=== PATIENT | female | born 1945 | race Caucasian/White ===

== ENCOUNTER 2016-06-21 09:15 | Emergency (ER) | payer MEDICARE, MEDICAID ==
--- NOTE | 2016-06-21 10:05 | ER Document Report ---
ED Extremity Problem, Lower - General Chief Complaint: Leg Swelling Stated Complaint: BILATERAL LEG PAIN Notes: The patient is a 71-year-old female, past medical history dementia, OA, HTN, presents with 2 weeks of increasing left leg swelling and mild redness. Her son noticed a small blister on the left lower leg a few days ago, which has not increased in size. She is also having a dry cough. Denies fevers, nausea, vomiting, back pain, numbness, tingling or leg pain. TRAVEL OUTSIDE OF THE [place] IN LAST 30 DAYS: No - Related Data Allergies/Adverse Reactions: aspirin [Aspirin] Allergy (Verified 06/21/16 09:33) codeine [Codeine] Allergy (Verified 06/21/16 09:33) naproxen [From Naprosyn] Allergy (Verified 06/21/16 09:33) Past Medical History - General Information source: Patient, Relative - Son - Social History Smoking Status: Never Smoker Chew tobacco use (# tins/day): No Frequency of alcohol use: None Drug Abuse: None Family History: Reviewed & Not Pertinent Patient has suicidal ideation: No Patient has homicidal ideation: No - Past Medical History Cardiac Medical History: Reports: Hx Hypertension Renal/ Medical History: Denies: Hx Peritoneal Dialysis Musculoskeltal Medical History: Reports Hx Arthritis Psychiatric Medical History: Reports: Hx Schizophrenia Past Surgical History: Reports: Hx Appendectomy, Hx Cholecystectomy, Hx Tonsillectomy - Immunizations Hx Diphtheria, Pertussis, Tetanus Vaccination: No Hx Pneumococcal Vaccination: 01/03/14 Review of Systems - Review of Systems Notes: REVIEW OF SYSTEMS: CONSTITUTIONAL: -fevers, -chills EENT: -eye pain, -difficulty swallowing, -nasal congestion CARDIOVASCULAR: -chest pain, -syncope. RESPIRATORY: +cough, -SOB GASTROINTESTINAL: -abdominal pain, - nausea, -vomiting, -diarrhea GENITOURINARY: -dysuria, -hematuria MUSCULOSKELETAL: +left leg swelling, -back pain, -neck pain SKIN: -rash or skin lesions. HEMATOLOGIC: -easy bruising or bleeding. LYMPHATIC: -swollen, enlarged glands. NEUROLOGICAL: -altered mental status or loss of consciousness, -headache, - neurologic symptoms PSYCHIATRIC: -anxiety, -depression. ALL OTHER SYSTEMS REVIEWED AND NEGATIVE. Physical Exam - Vital signs Vitals: Temp Pulse BP Pulse Ox 98.0 F 78 144/91 H 94 06/21/16 09:27 06/21/16 09:27 06/21/16 09:27 06/21/16 09:27 - Notes Notes: PHYSICAL EXAMINATION: GENERAL: Well-appearing, well-nourished and in no acute distress. HEAD: Atraumatic, normocephalic. EYES: Pupils equal round and reactive to light, extraocular movements intact, sclera anicteric, conjunctiva are normal. ENT: nares patent, oropharynx clear without exudates. Moist mucous membranes. NECK: Normal range of motion, supple without lymphadenopathy LUNGS: Breath sounds clear to auscultation bilaterally and equal. No wheezes rales or rhonchi. HEART: Regular rate and rhythm without murmurs ABDOMEN: Soft, nontender, normoactive bowel sounds. No guarding, no rebound. No masses appreciated. EXTREMITIES: 1+ pitting edema and mild erythema over left anterior arenas, no calf tenderness, no crepitus, Normal range of motion. No cyanosis. NEUROLOGICAL: Cranial nerves grossly intact. Normal speech, normal gait. Normal sensory, motor, and reflex exams. PSYCH: Normal mood, normal affect. SKIN: 0.5 cm blister over left medial arenas, non-tender Course - Re-evaluation Re-evalutation: Considered necrotizing fasciitis, but small blister has been present for several days without progression. Nontender area. Patient is nontoxic and afebrile. Will obtain an ultrasound of the left lower extremity to assess for DVT. Will also check CBC, BMP and BNP for causes of chronic leg swelling. Patient has very mild wheezing without respiratory distress and will treat with DuoNebs. 06/21/16 13:23 Wheezing resolved. Labs are unremarkable and ultrasound does not show DVT. No evidence of necrotizing fasciitis. Will discharge home after dose of Lasix and instructions to keep leg elevated with follow-up primary care physician. - Vital Signs Vital signs: Temp Pulse Resp BP Pulse Ox 98.0 F 78 144/91 H 94 06/21/16 09:27 06/21/16 09:27 06/21/16 09:27 06/21/16 09:27 - Laboratory Result Diagrams: 06/21/16 12:02 06/21/16 12:02 Laboratory results interpreted by me: 06/21/16 06/21/16 12:02 12:02 Hgb 11.8 L Hct 34.7 L BUN 30 H Est GFR (Non-Af Amer) 49 L Glucose 117 H - Diagnostic Test Radiology reviewed: Image reviewed, Reports reviewed Radiology results interpreted by me: DVT US: No DVT or SVT. Discharge - Discharge Clinical Impression: Swelling of left lower extremity Condition: Good Disposition: HOME, SELF-CARE Additional Instructions: Your ultrasound does not show any evidence of blood clots. Edema, Peripheral You have swelling in your legs. This is called peripheral edema. It can be caused by "leaky capillaries," inflammation, disease of the leg veins, or excess salt and water in your body. Edema may be a sign of heart, kidney, or liver disease. A medical evaluation can determine if there is a serious underlying cause for your edema. Avoid prolonged standing. If you must sit for a long time, occasionally get up and walk around or elevate your legs. Support stockings can be helpful in limiting swelling. Often diuretic or water pills are used to remove excess salt and water from your body. Call the doctor or return if you develop increased swelling, pain, or redness, shortness of breath, chest pain, or any other significant change.
[2016-06-21] MEDS ORDERED: IPRATROPIUM/ALBUTEROL 0.5-2.5 MG/3 ML AMPUL NEB ONE (10:39)
[2016-06-21 12:27] LABS: ABSOLUTE EOSINOPHILS # (AUTO) 0.3 10^3/uL (0.0-0.6); ABSOLUTE LYMPHOCYTES (AUTO) 1.3 10^3/uL (0.5-4.7); ABSOLUTE MONOCYTES (AUTO) 0.6 10^3/uL (0.1-1.4); BASOPHILS % (AUTO) 0.5 % (0-2); EOSINOPHILS % (AUTO) 5.2 % (0-6); HEMATOCRIT 34.7 % (36.0-47.0); HEMOGLOBIN 11.8 g/dL (12.0-15.5); HGB HCT DIFFERENCE 0.7; LYMPHOCYTES % (AUTO) 20.2 % (13-45); MEAN CORPUSCULAR HEMOGLOBIN 31.2 pg (27.0-33.4); MEAN CORPUSCULAR VOLUME 92 fl (80-97); MONOCYTES % (AUTO) 9.5 % (3-13); RED BLOOD COUNT 3.78 10^6/uL (3.72-5.28); RED CELL DISTRIBUTION WIDTH 12.7 % (11.5-14.0); SEGMENTED NEUTROPHILS % (AUTO) 64.6 % (42-78); WHITE BLOOD COUNT 6.3 10^3/uL (4.0-10.5)
[2016-06-21 12:51] LABS: ANION GAP 7 (5-19); BLOOD UREA NITROGEN 30 mg/dL (7-20); CALCIUM 9.3 mg/dL (8.4-10.2); CARBON DIOXIDE 28 mmol/L (22-30); CHLORIDE 106 mmol/L (98-107); CREATININE RESULT 1.09 mg/dL (0.52-1.25); GLUCOSE 117 mg/dL (75-110); POTASSIUM 3.7 mmol/L (3.6-5.0); SODIUM 141.3 mmol/L (137-145)
[2016-06-21] MEDS ORDERED: ACETAMINOPHEN 325 MG TABLET PO ONE (13:21)
[2016-06-21] MEDS ORDERED: FUROSEMIDE INJ/PF 40 MG/4 ML SDV IV ONE (13:28)
[2016-06-21 14:02] VITALS: BP 157/86
== END 2016-06-21 14:18 | disposition home or self-care (01) ==
LOC: ER 09:15
DX: S80.822A Blister (nonthermal), left lower leg, initial encounter (principal); X58.XXXA Exposure to other specified factors, initial encounter; M79.89 Other specified soft tissue disorders; R05 Cough; I10 Essential (primary) hypertension; Z88.6 Allergy status to analgesic agent; Z88.5 Allergy status to narcotic agent; Z88.8 Allergy status to other drugs, medicaments and biological substances
CPT/HCPCS: 94640; 99284; 96374; 36415; 85025; 80048; 83880; 93971; A9270 ×2; J1940; J7620

== ENCOUNTER 2016-10-11 11:36 | Inpatient (IN) | payer MEDICARE, MEDICAID ==
[2016-10-11] MEDS ORDERED: DILTIAZEM HCL/D5W 125 MG/125 ML RTUINJ IV ONE (12:10)
[2016-10-11] MEDS ORDERED: DILTIAZEM HCL INJ 25 MG/5 ML VIAL ONE (12:10)
[2016-10-11] MEDS ORDERED: DILTIAZEM HCL INJ 25 MG/5 ML VIAL IV ONE (12:25)
[2016-10-11] MEDS ORDERED: DILTIAZEM HCL/D5W 125 ML IV PRN (12:25)
[2016-10-11 12:47] LABS: ABSOLUTE EOSINOPHILS # (AUTO) 0.3 10^3/uL (0.0-0.6); ABSOLUTE LYMPHOCYTES (AUTO) 1.6 10^3/uL (0.5-4.7); ABSOLUTE MONOCYTES (AUTO) 0.7 10^3/uL (0.1-1.4); ABSOLUTE NEUT (AUTO) 4.9 10^3/uL (1.7-8.2); BASOPHILS % (AUTO) 0.5 % (0-2); HEMATOCRIT 35.4 % (36.0-47.0); HEMOGLOBIN 11.6 g/dL (12.0-15.5); HGB HCT DIFFERENCE -0.6; LYMPHOCYTES % (AUTO) 20.8 % (13-45); MEAN CORPUSCULAR HEMOGLOBIN 30.1 pg (27.0-33.4); MEAN CORPUSCULAR HGB CONC 32.9 g/dL (32.0-36.0); MEAN CORPUSCULAR VOLUME 92 fl (80-97); MONOCYTES % (AUTO) 9.1 % (3-13); RED BLOOD COUNT 3.86 10^6/uL (3.72-5.28); RED CELL DISTRIBUTION WIDTH 13.4 % (11.5-14.0); SEGMENTED NEUTROPHILS % (AUTO) 65.6 % (42-78); WHITE BLOOD COUNT 7.5 10^3/uL (4.0-10.5)
[2016-10-11 12:49] LABS: PARTIAL THROMBOPLASTIN TIME 33.3 SEC (23.5-35.8); PROTHROMBIN TIME 14.2 SEC (11.4-15.4)
[2016-10-11 12:55] LABS: BLOOD UREA NITROGEN 31 mg/dL (7-20); CALCIUM 9.4 mg/dL (8.4-10.2); CARBON DIOXIDE 23 mmol/L (22-30); CHLORIDE 110 mmol/L (98-107); CREATININE RESULT 1.16 mg/dL (0.52-1.25); GLUCOSE 98 mg/dL (75-110); POTASSIUM 4.4 mmol/L (3.6-5.0)
[2016-10-11 12:56] LABS: ALANINE AMINOTRANSFERASE 22 U/L (9-52); ALBUMIN 4.2 g/dL (3.5-5.0); ALKALINE PHOSPHATASE 80 U/L (38-126); ANION GAP 13 (5-19); ASPARTATE AMINO TRANSFERASE 16 U/L (14-36); BILIRUBIN,DIRECT 0.3 mg/dL (0.0-0.4); BILIRUBIN,TOTAL 0.8 mg/dL (0.2-1.3); CREATINE KINASE 58 U/L (30-135); MAGNESIUM 2.1 mg/dL (1.6-2.3); SODIUM 145.7 mmol/L (137-145); TOTAL PROTEIN 7.3 g/dL (6.3-8.2)
--- NOTE | 2016-10-11 13:00 | RADIOLOGY REPORT (SQ) ---
EXAM DESCRIPTION: CHEST SINGLE VIEW COMPLETED DATE/TIME: 10/11/2016 12:42 pm REASON FOR STUDY: cp COMPARISON: January 2015 EXAM PARAMETERS: NUMBER OF VIEWS: One view. TECHNIQUE: Single frontal radiographic view of the chest acquired. RADIATION DOSE: NA LIMITATIONS: None. FINDINGS: LUNGS AND PLEURA: No opacities, masses or pneumothorax. No pleural effusion. MEDIASTINUM AND HILAR STRUCTURES: No masses. Contour normal. HEART AND VASCULAR STRUCTURES: The configuration of the heart and mediastinal structures is unchanged . Cardiac silhouette is at the upper limits of normal in size. BONES: No acute findings. HARDWARE: None in the chest. OTHER: No other significant finding. IMPRESSION: NO ACUTE RADIOGRAPHIC FINDING IN THE CHEST. TECHNICAL DOCUMENTATION: JOB ID: [id number]
[2016-10-11 13:19] LABS: CREATINE KINASE MB 1.05 ng/mL (<4.55)
[2016-10-11 13:24] LABS: TROPONIN I < 0.012 ng/mL
[2016-10-11 13:26] LABS: APPEARANCE,URINE CLEAR; BILIRUBIN,URINE NEGATIVE (NEGATIVE); GLUCOSE, URINE NEGATIVE (NEGATIVE); KETONES,URINE NEGATIVE (NEGATIVE); LEUKOCYTE ESTERASE,URINE NEGATIVE (NEGATIVE); NITRITE,URINE NEGATIVE (NEGATIVE); PROTEIN,URINE NEGATIVE (NEGATIVE); URINE SPECIFIC GRAVITY 1.023; UROBILINOGEN,URINE NEGATIVE mg/dL (<2.0)
[2016-10-11 13:33] LABS: THYROID STIMULATING HORMONE 3.26 uIU/mL (0.47-4.68)
--- NOTE | 2016-10-11 13:42 | ER Document Report ---
ED General - General Chief Complaint: Shortness Of Breath Stated Complaint: CHEST PAIN Time Seen by Provider: 10/11/16 12:25 TRAVEL OUTSIDE OF THE [place] IN LAST 30 DAYS: No - HPI Patient complains to provider of: Shortness of breath Notes: Patient was seen in triage found to have elevated heart rate. EKG showed A. fib with RVR. Patient states recent admission for psychiatric reason patient has a history of schizophrenia to [facility] at that time patient was found to be in A. fib started on metoprolol and Eliquis states the patient has been compliant states that she is to began to have shortness of breath just prior to arrival. Patient otherwise is able to have a normal conversation no signs of hypoxia. Patient denies any pain denies any abdominal pain denies chest pain. Denies fevers chills nausea vomiting - Related Data Allergies/Adverse Reactions: aspirin [Aspirin] Allergy (Verified 10/11/16 11:51) codeine [Codeine] Allergy (Verified 10/11/16 11:51) naproxen [From Naprosyn] Allergy (Verified 10/11/16 11:51) Home Medications: Current Home Medications Apixaban [Eliquis 5 mg Tablet] 5 mg PO Q12 10/11/16 [History] Cholecalciferol (Vitamin D3) [Vitamin D3 1000 Unit Tablet] 1,000 unit PO DAILY 10/11/16 [History] Dexlansoprazole [Dexilant 30 mg Capsule] 30 mg PO QHS 10/11/16 [History] Levothyroxine Sodium [Synthroid 50 Mcg Tablet] 50 mcg PO DAILY@0630 10/11/16 [ History] Losartan/Hydrochlorothiazide [Hyzaar 100-25 Tablet] 1 tab PO DAILY 10/11/16 [ History] Metoprolol Tartrate [Lopressor 50 mg Tablet] 50 mg PO Q12 10/11/16 [History] Mirabegron [Myrbetriq] 25 mg PO DAILY 10/11/16 [History] Potassium Chloride [Klor-Con 8] 16 meq PO DAILY 10/11/16 [History] Quetiapine Fumarate [Seroquel] 50 mg PO BIDP PRN 10/11/16 [History] Quetiapine Fumarate [Seroquel] 50 mg PO QHS 10/11/16 [History] Rivastigmine Tartrate [Rivastigmine] 6 mg PO Q12 10/11/16 [History] Past Medical History - Social History Smoking Status: Never Smoker Frequency of alcohol use: None Drug Abuse: None Family History: Reviewed & Not Pertinent Patient has suicidal ideation: No Patient has homicidal ideation: No - Past Medical History Cardiac Medical History: Reports: Hx Hypertension Renal/ Medical History: Denies: Hx Peritoneal Dialysis Musculoskeltal Medical History: Reports Hx Arthritis Psychiatric Medical History: Reports: Hx Schizophrenia Past Surgical History: Reports: Hx Appendectomy, Hx Cholecystectomy, Hx Tonsillectomy - Immunizations Hx Diphtheria, Pertussis, Tetanus Vaccination: No Hx Pneumococcal Vaccination: 01/03/14 Review of Systems - Review of Systems Constitutional: No symptoms reported EENT: No symptoms reported Cardiovascular: No symptoms reported Respiratory: Short of breath Gastrointestinal: No symptoms reported Genitourinary: No symptoms reported Female Genitourinary: No symptoms reported Musculoskeletal: No symptoms reported Skin: No symptoms reported Hematologic/Lymphatic: No symptoms reported Neurological/Psychological: No symptoms reported -: Yes All other systems reviewed and negative Physical Exam - Vital signs Vitals: Temp Pulse Resp BP Pulse Ox 97.9 F 67 20 141/104 H 95 10/11/16 11:51 10/11/16 11:51 10/11/16 11:51 10/11/16 11:51 10/11/16 11:51 Interpretation: Normal - General General appearance: Appears well, Alert - HEENT Head: Normocephalic, Atraumatic Eyes: Normal Pupils: PERRL - Respiratory Respiratory status: No respiratory distress Chest status: Nontender Breath sounds: Normal Chest palpation: Normal - Cardiovascular Rhythm: Irregularly irregular Heart sounds: Normal auscultation Murmur: No - Abdominal Inspection: Normal Distension: No distension Bowel sounds: Normal Tenderness: Nontender Organomegaly: No organomegaly - Back Back: Normal, Nontender - Extremities General upper extremity: Normal inspection, Nontender, Normal color, Normal ROM , Normal temperature General lower extremity: Normal inspection, Nontender, Normal color, Normal ROM , Normal temperature, Normal weight bearing. No: Bang's sign - Neurological Neuro grossly intact: Yes Cognition: Normal Orientation: AAOx4 [place] Coma Scale Eye Opening: Spontaneous [place] Coma Scale Verbal: Oriented [place] Coma Scale Motor: Obeys Commands Lola Coma Scale Total: 15 Speech: Normal Motor strength normal: LUE, RUE, LLE, RLE Sensory: Normal - Psychological Associated symptoms: Normal affect, Normal mood - Skin Skin Temperature: Warm Skin Moisture: Dry Skin Color: Normal Course - Re-evaluation Re-evalutation: 10/11/16 15:38 EKG shows tachycardia with A. fib RVR. Patient was given a bolus of Cardizem followed by drip. Discussed with PCP will admit patient for further evaluation of A. fib with RVR - Vital Signs Vital signs: Temp Pulse Resp BP Pulse Ox 98.0 F 67 20 128/95 H 99 10/11/16 15:01 10/11/16 11:51 10/11/16 15:11 10/11/16 15:11 10/11/16 15:10 - Laboratory Result Diagrams: 10/11/16 12:05 10/11/16 12:05 Laboratory results interpreted by me: 10/11/16 10/11/16 10/11/16 12:05 12:05 12:05 Hgb 11.6 L Hct 35.4 L Sodium 145.7 H Chloride 110 H BUN 31 H Est GFR ( Amer) 56 L Est GFR (Non-Af Amer) 46 L NT-Pro-B Natriuret Pep 2580 H Discharge - Discharge Clinical Impression: Atrial fibrillation with RVR, Peripheral edema, History of schizophrenia, History of hypertension Condition: Good Disposition: ADMITTED INPATIENT Admitting Provider: Paul Unit Admitted: IMCU Referrals: GANGA SANTAMARIA MD [Primary Care Provider] - Follow up as needed
[2016-10-11 13:58] LABS: URINE BARBITURATES SCREEN NEGATIVE; URINE METHADONE SCREEN NEGATIVE; URINE OPIATES LOW NEGATIVE; URINE PHENCYCLIDINE SCREEN NEGATIVE
--- NOTE | 2016-10-11 17:29 | PDOC H&P ---
History of Present Illness Admission Date/PCP: 10/11/16 14:05 GANGA SANTAMARIA History of Present Illness: ARPIT NAYLOR is a 71 year old female known to my practice douglas presented to the ED with complain of shortness of brerath with irregular heart beats. She was recently discharged from [facility] following admission for acute psychosis with diagnosis of schizophrenia. During her hospital stay she had episode of atrial fibrillation and after cardiology consultation started on Metoprolol and Eliquis for rate control and anticoagulation management. Patient reported associated chest pain, shortness of breath and wheezing with her irregular freire beat. She was diagnosed woith hypothyroidism and started on low dose Levothyroxine during same admission to [facility]. She denied any chest pain, nausea , vomiting or abdominal pain. No headache or dizziness. Her initial assessment in the ED was remarkable for Atrial Fibrillation with RVR patten. Her medical morbidities include Hypertension,newly diagnosed a5tial fibrillation, hypothyroidism, schizophrenia and Osteoarthritis. Past Medical History Cardiac Medical History: Reports: Atrial Fibrillation, Hypertension Endocrine Medical History: Reports: Hypothyroidism, Obesity GI Medical History: Reports: Gastroesophageal Reflux Disease Musculoskeltal Medical History: Reports: Arthritis Psychiatric Medical History: Reports: Schizoaffective Disorder Past Surgical History Past Surgical History: Reports: Appendectomy, Cholecystectomy, Tonsillectomy Social History Smoking Status: Never Smoker Frequency of Alcohol Use: None Hx Recreational Drug Use: No Hx Prescription Drug Abuse: No Family History Family History: Reviewed & Not Pertinent Parental Family History Reviewed: Yes Children Family History Reviewed: Yes Sibling(s) Family History Reviewed.: Yes Medication/Allergy Home Medications: Apixaban [Eliquis 5 mg Tablet] 5 mg PO Q12 10/11/16 Cholecalciferol (Vitamin D3) [Vitamin D3 1000 Unit Tablet] 1,000 unit PO DAILY 10/11/16 Dexlansoprazole [Dexilant 30 mg Capsule] 30 mg PO QHS 10/11/16 Levothyroxine Sodium [Synthroid 50 Mcg Tablet] 50 mcg PO DAILY@0630 10/11/16 Losartan/Hydrochlorothiazide [Hyzaar 100-25 Tablet] 1 tab PO DAILY 10/11/16 Metoprolol Tartrate [Lopressor 50 mg Tablet] 50 mg PO Q12 10/11/16 Mirabegron [Myrbetriq] 25 mg PO DAILY 10/11/16 Potassium Chloride [Klor-Con 8] 16 meq PO DAILY 10/11/16 Quetiapine Fumarate [Seroquel] 50 mg PO BIDP PRN 10/11/16 Quetiapine Fumarate [Seroquel] 50 mg PO QHS 10/11/16 Rivastigmine Tartrate [Rivastigmine] 6 mg PO Q12 10/11/16 Allergies/Adverse Reactions: aspirin [Aspirin] Allergy (Verified 10/11/16 11:51) codeine [Codeine] Allergy (Verified 10/11/16 11:51) naproxen [From Naprosyn] Allergy (Verified 10/11/16 11:51) Review of Systems Constitutional: ABSENT: chills, fever(s), headache(s), weight gain, weight loss Eyes: PRESENT: visual disturbances Ears: PRESENT: hearing changes. ABSENT: as per HPI, other Nose, Mouth, and Throat: ABSENT: as per HPI, headache(s), mouth pain, sore throat, vertigo, other Cardiovascular: PRESENT: chest pain, dyspnea on exertion, edema, palpitations. ABSENT: as per HPI, orthropnea, other Respiratory: PRESENT: dyspnea. ABSENT: as per HPI, cough, hemoptysis, sputum, other Gastrointestinal: ABSENT: abdominal pain, constipation, diarrhea, hematemesis, hematochezia, nausea, vomiting Genitourinary: ABSENT: dysuria, hematuria Musculoskeletal: ABSENT: joint swelling Integumentary: ABSENT: rash, wounds Neurological: ABSENT: abnormal gait, abnormal speech, confusion, dizziness, focal weakness, syncope Endocrine: ABSENT: cold intolerance, heat intolerance, polydipsia, polyuria Hematologic/Lymphatic: ABSENT: easy bleeding, easy bruising, lymphadenopathy Allergic/Immunologic: ABSENT: as per HPI, seasonal rhinorrhea, other Physical Exam Vital Signs: Temp Pulse Resp BP Pulse Ox 98.0 F 111 H 20 128/97 H 97 10/11/16 15:01 10/11/16 15:42 10/11/16 15:16 10/11/16 15:37 10/11/16 15:16 Intake & Output 10/10/16 10/11/16 10/12/16 06:59 06:59 06:59 Intake Total 50 Balance 50 General appearance: PRESENT: no acute distress, morbidly obese Head exam: PRESENT: atraumatic, normocephalic Eye exam: PRESENT: conjunctiva pink, EOMI, PERRLA. ABSENT: scleral icterus Ear exam: PRESENT: normal external ear exam Mouth exam: PRESENT: moist Teeth exam: PRESENT: poor dentation. ABSENT: dental caries, dental tenderness, edentulous, other Neck exam: PRESENT: full ROM. ABSENT: carotid bruit, JVD, lymphadenopathy, thyromegaly Respiratory exam: PRESENT: clear to auscultation milana Cardiovascular exam: PRESENT: irregular rhythm. ABSENT: bradycardia, clicks, diastolic murmur, gallop, RRR, rubs, +S1, +S2, systolic murmur, tachycardia, other Pulses: PRESENT: normal dorsalis pedis pul, +2 pedal pulses bilateral Vascular exam: PRESENT: normal capillary refill GI/Abdominal exam: PRESENT: normal bowel sounds, soft. ABSENT: distended, guarding, mass, organolmegaly, rebound, tenderness Rectal exam: PRESENT: deferred Gentrourinary exam: PRESENT: indwelling catheter Extremities exam: PRESENT: pedal edema Musculoskeletal exam: PRESENT: deformity - related to her arthritis, full ROM Neurological exam: PRESENT: alert, awake, oriented to person, oriented to place , oriented to time, oriented to situation, CN II-XII grossly intact. ABSENT: motor sensory deficit Psychiatric exam: PRESENT: appropriate affect Skin exam: PRESENT: dry, intact, warm. ABSENT: cyanosis, rash Results Laboratory Results: I reviewed her laboratory results on [facility]ely[facility] They form significant part of my medical decision making. Impressions: Chest X-Ray 10/11/16 12:25 IMPRESSION: NO ACUTE RADIOGRAPHIC FINDING IN THE CHEST. Assessment & Plan - Diagnosis (1) Atrial fibrillation with RVR Is this a current diagnosis for this admission?: YesPlan: See admitting physician orders. (2) HTN (hypertension) Qualifiers: Hypertension type: essential hypertension Qualified Code(s): I10 - Essential (primary) hypertension Is this a current diagnosis for this admission?: YesPlan: See admitting physician orders. (3) Hypothyroidism Qualifiers: Hypothyroidism type: unspecified Qualified Code(s): E03.9 - Hypothyroidism, unspecified Is this a current diagnosis for this admission?: YesPlan: See admitting physician orders. (4) GERD (gastroesophageal reflux disease) Qualifiers: Esophagitis presence: without esophagitis Qualified Code(s): K21.9 - Gastro-esophageal reflux disease without esophagitis Is this a current diagnosis for this admission?: YesPlan: See admitting physician orders. (5) History of stroke Is this a current diagnosis for this admission?: YesPlan: See admitting physician orders. (6) Depression Qualifiers: Depression Type: unspecified Qualified Code(s): F32.9 - Major depressive disorder, single episode, unspecified Is this a current diagnosis for this admission?: YesPlan: See admitting physician orders. (7) H/O retinal vein occlusion Is this a current diagnosis for this admission?: YesPlan: See admitting physician orders. (8) Schizophrenia, paranoid type Is this a current diagnosis for this admission?: YesPlan: See admitting physician orders. - Time Time Spent: 50 to 70 Minutes Medications reviewed and adjusted accordingly: Yes Anticipated discharge: Home Within: Other - Inpatient Certification Based on my medical assessment, after consideration of the patient's comorbidities, presenting symptoms, or acuity I expect that the services needed warrant INPATIENT care.: Yes I certify that my determination is in accordance with my understanding of Medicare's requirements for reasonable and necessary INPATIENT services [42 CFR 412.3e].: Yes Medical Necessity: Need Close Monitoring Due to Risk of Patient Decompensation, Need For IV Fluids, Need For Continuous Telemetry Monitoring, Risk of Complication if Not Cared For in Hospital Post Hospital Care: D/C Pantograph Watcher Documentation - Plan Summary Plan Summary: See admitting physician orders.
[2016-10-11] MEDS ORDERED: (PENDING PHARMACY ID) (Quetiapine Fumarate [Seroquel] 50 MG) PO PRN (17:33)
[2016-10-11] MEDS ORDERED: QUETIAPINE FUMARATE 25 MG TABLET PO PRN (17:46)
[2016-10-11 18:09] LABS: HEMATOCRIT 33.3 % (36.0-47.0); HEMOGLOBIN 10.9 g/dL (12.0-15.5); HGB HCT DIFFERENCE -0.6; MEAN CORPUSCULAR HGB CONC 32.6 g/dL (32.0-36.0); MEAN CORPUSCULAR VOLUME 92 fl (80-97); RED BLOOD COUNT 3.61 10^6/uL (3.72-5.28); RED CELL DISTRIBUTION WIDTH 13.1 % (11.5-14.0); WHITE BLOOD COUNT 5.9 10^3/uL (4.0-10.5)
[2016-10-11 18:15] LABS: PROTHROMBIN TIME 14.4 SEC (11.4-15.4)
[2016-10-11 18:16] LABS: PARTIAL THROMBOPLASTIN TIME 32.7 SEC (23.5-35.8)
[2016-10-11 18:25] LABS: CREATININE RESULT 1.03 mg/dL (0.52-1.25)
[2016-10-11] MEDS ORDERED: POTASSIUM CHLORIDE 20 MEQ/15 ML UDCUP PO ONE (19:00)
[2016-10-11] MEDS: RIVASTIGMINE TARTRATE 1.5 MG CAPSULE PO SCH (22:00)
[2016-10-11] MEDS ORDERED: (PENDING PHARMACY ID) (Quetiapine Fumarate [Seroquel] 50 MG) PO SCH (22:00)
[2016-10-11] MEDS ORDERED: (PENDING PHARMACY ID) (Rivastigmine Tartrate [Rivastigmine] 6 MG) PO SCH (22:00)
[2016-10-11] MEDS: QUETIAPINE FUMARATE 25 MG TABLET PO SCH (22:00)
[2016-10-11] MEDS: METOPROLOL TARTRATE 50 MG TABLET PO SCH (22:01)
[2016-10-11] MEDS: APIXABAN 5 MG TABLET PO SCH (22:05)
[2016-10-12] MEDS: LANSOPRAZOLE 30 MG TAB.RAP.DR PO SCH (05:35)
[2016-10-12] MEDS: LEVOTHYROXINE SODIUM 0.05 MG TABLET PO SCH (05:35)
[2016-10-12 05:48] LABS: ABSOLUTE EOSINOPHILS # (AUTO) 0.3 10^3/uL (0.0-0.6); ABSOLUTE LYMPHOCYTES (AUTO) 1.7 10^3/uL (0.5-4.7); ABSOLUTE MONOCYTES (AUTO) 0.6 10^3/uL (0.1-1.4); ABSOLUTE NEUT (AUTO) 4.1 10^3/uL (1.7-8.2); BASOPHILS % (AUTO) 0.3 % (0-2); EOSINOPHILS % (AUTO) 4.5 % (0-6); HEMATOCRIT 31.6 % (36.0-47.0); HEMOGLOBIN 10.3 g/dL (12.0-15.5); HGB HCT DIFFERENCE -0.7; LYMPHOCYTES % (AUTO) 25.9 % (13-45); MEAN CORPUSCULAR HGB CONC 32.8 g/dL (32.0-36.0); MEAN CORPUSCULAR VOLUME 92 fl (80-97); MONOCYTES % (AUTO) 8.6 % (3-13); RED BLOOD COUNT 3.45 10^6/uL (3.72-5.28); RED CELL DISTRIBUTION WIDTH 13.3 % (11.5-14.0); SEGMENTED NEUTROPHILS % (AUTO) 60.7 % (42-78); WHITE BLOOD COUNT 6.7 10^3/uL (4.0-10.5)
[2016-10-12 06:03] LABS: ALANINE AMINOTRANSFERASE 21 U/L (9-52); ALBUMIN 3.4 g/dL (3.5-5.0); ALKALINE PHOSPHATASE 69 U/L (38-126); ANION GAP 11 (5-19); ASPARTATE AMINO TRANSFERASE 12 U/L (14-36); BILIRUBIN,DIRECT 0.3 mg/dL (0.0-0.4); BLOOD UREA NITROGEN 28 mg/dL (7-20); CARBON DIOXIDE 21 mmol/L (22-30); CHLORIDE 109 mmol/L (98-107); CREATINE KINASE 47 U/L (30-135); CREATININE RESULT 1.05 mg/dL (0.52-1.25); GLUCOSE 104 mg/dL (75-110); POTASSIUM 4.4 mmol/L (3.6-5.0); SODIUM 140.7 mmol/L (137-145)
[2016-10-12 06:37] LABS: TROPONIN I < 0.012 ng/mL
[2016-10-12] MEDS: METOPROLOL TARTRATE 50 MG TABLET PO SCH ×2 (09:07→21:33)
[2016-10-12] MEDS: CHOLECALCIFEROL (D3) 1,000 UNIT TABLET PO SCH (09:08)
[2016-10-12] MEDS: POTASSIUM CHLORIDE 20 MEQ/15 ML UDCUP PO SCH (09:10)
[2016-10-12] MEDS: RIVASTIGMINE TARTRATE 1.5 MG CAPSULE PO SCH ×2 (09:10→21:32)
[2016-10-12] MEDS: APIXABAN 5 MG TABLET PO SCH ×2 (09:10→21:34)
[2016-10-12] MEDS ORDERED: (PENDING PHARMACY ID) (Mirabegron [Myrbetriq] 25 MG) PO SCH (10:00)
[2016-10-12] MEDS ORDERED: POTASSIUM CHLORIDE 16 MEQ PO SCH (10:00)
--- NOTE | 2016-10-12 14:44 | PDOC PROGRESS REPORT ---
Subjective Progress Note for:: 10/12/16 Subjective:: Patient was admitted because of atria fibrillation with rapid ventricular response. She is presently on intravenous Cardizem infusion for rate control. He was seen by the bedside Physical Exam Vital Signs: Temp Pulse Resp BP Pulse Ox 98.3 F 74 20 115/71 96 10/12/16 11:33 10/12/16 11:33 10/12/16 11:33 10/12/16 11:33 10/12/16 11:33 Intake & Output 10/11/16 10/12/16 10/13/16 06:59 06:59 06:59 Intake Total 736 355 Output Total 800 200 Balance -64 155 Weight 123.1 kg 123.1 kg General appearance: PRESENT: no acute distress, well-developed, well-nourished Head exam: PRESENT: atraumatic, normocephalic Mouth exam: PRESENT: moist, tongue midline Neck exam: PRESENT: full ROM Respiratory exam: PRESENT: clear to auscultation milana Cardiovascular exam: PRESENT: RRR, +S1, +S2 Pulses: PRESENT: normal dorsalis pedis pul, +2 pedal pulses bilateral Vascular exam: PRESENT: normal capillary refill GI/Abdominal exam: PRESENT: normal bowel sounds, soft Rectal exam: PRESENT: deferred Neurological exam: PRESENT: alert, awake, oriented to person, oriented to place , oriented to time, oriented to situation, CN II-XII grossly intact Psychiatric exam: PRESENT: appropriate affect, normal mood Skin exam: PRESENT: dry, intact, warm. ABSENT: cyanosis, rash Results Laboratory Results: 10/12/16 04:46 10/12/16 04:46 10/11/16 10/11/16 10/12/16 17:45 17:45 04:46 WBC 5.9 6.7 RBC 3.61 L 3.45 L Hgb 10.9 L 10.3 L Hct 33.3 L 31.6 L MCV 92 92 MCH 30.0 30.0 MCHC 32.6 32.8 RDW 13.1 13.3 Plt Count 240 223 Seg Neutrophils % 60.7 Lymphocytes % 25.9 Monocytes % 8.6 Eosinophils % 4.5 Basophils % 0.3 Absolute Neutrophils 4.1 Absolute Lymphocytes 1.7 Absolute Monocytes 0.6 Absolute Eosinophils 0.3 Absolute Basophils 0.0 Sodium Potassium Chloride Carbon Dioxide Anion Gap BUN Creatinine 1.03 Est GFR ( Amer) > 60 Est GFR (Non-Af Amer) 53 L Glucose Calcium Total Bilirubin AST ALT Alkaline Phosphatase Total Protein Albumin 10/12/16 04:46 WBC RBC Hgb Hct MCV MCH MCHC RDW Plt Count Seg Neutrophils % Lymphocytes % Monocytes % Eosinophils % Basophils % Absolute Neutrophils Absolute Lymphocytes Absolute Monocytes Absolute Eosinophils Absolute Basophils Sodium 140.7 Potassium 4.4 Chloride 109 H Carbon Dioxide 21 L Anion Gap 11 BUN 28 H Creatinine 1.05 Est GFR ( Amer) > 60 Est GFR (Non-Af Amer) 52 L Glucose 104 Calcium 9.0 Total Bilirubin 1.0 AST 12 L ALT 21 Alkaline Phosphatase 69 Total Protein 6.0 L Albumin 3.4 L 10/11/16 10/12/16 10/12/16 16:30 04:46 04:46 Creatine Kinase 47 CK-MB (CK-2) 0.50 Troponin I < 0.012 < 0.012 Impressions: Chest X-Ray 10/11/16 12:25 IMPRESSION: NO ACUTE RADIOGRAPHIC FINDING IN THE CHEST. Assessment & Plan - Diagnosis (1) Atrial fibrillation with RVR Is this a current diagnosis for this admission?: YesPlan: Continue present treatment (2) History of hypertension Is this a current diagnosis for this admission?: Yes (3) History of stroke Is this a current diagnosis for this admission?: Yes (4) Hypothyroidism Qualifiers: Hypothyroidism type: unspecified Qualified Code(s): E03.9 - Hypothyroidism, unspecified Is this a current diagnosis for this admission?: Yes (5) Peripheral edema Is this a current diagnosis for this admission?: Yes (6) Schizophrenia, paranoid type Is this a current diagnosis for this admission?: Yes
[2016-10-12] MEDS ORDERED: HYDROCHLOROTHIAZIDE 25 MG TABLET PO ONE (17:00)
[2016-10-12 21:09] LABS: ARTERIAL BLOOD BASE EXCESS 0.5 mmol/L; ARTERIAL BLOOD O2 SATURATION 96.6 % (94-98)
[2016-10-12] MEDS ORDERED: ACETAMINOPHEN 325 MG TABLET ONE (21:32)
[2016-10-12] MEDS: QUETIAPINE FUMARATE 25 MG TABLET PO SCH (21:33)
--- NOTE | 2016-10-12 21:33 | RADIOLOGY REPORT (SQ) ---
EXAM DESCRIPTION: CHEST SINGLE VIEW COMPLETED DATE/TIME: 10/12/2016 8:54 pm REASON FOR STUDY: SOB COMPARISON: 10/11/2016 EXAM PARAMETERS: NUMBER OF VIEWS: One view. TECHNIQUE: Single frontal radiographic view of the chest acquired. RADIATION DOSE: NA LIMITATIONS: None. FINDINGS: LUNGS AND PLEURA: No opacities, masses or pneumothorax. No pleural effusion. MEDIASTINUM AND HILAR STRUCTURES: No masses. Contour normal. HEART AND VASCULAR STRUCTURES: The cardiomediastinal silhouette is stable. BONES: No acute findings. HARDWARE: None in the chest. OTHER: No other significant finding. IMPRESSION: NO ACUTE RADIOGRAPHIC FINDING IN THE CHEST. TECHNICAL DOCUMENTATION: JOB ID: [id number]
[2016-10-13 04:55] LABS: ABSOLUTE EOSINOPHILS # (AUTO) 0.3 10^3/uL (0.0-0.6); ABSOLUTE LYMPHOCYTES (AUTO) 1.8 10^3/uL (0.5-4.7); ABSOLUTE MONOCYTES (AUTO) 0.7 10^3/uL (0.1-1.4); ABSOLUTE NEUT (AUTO) 4.6 10^3/uL (1.7-8.2); BASOPHILS % (AUTO) 0.4 % (0-2); EOSINOPHILS % (AUTO) 3.6 % (0-6); HEMATOCRIT 34.1 % (36.0-47.0); HGB HCT DIFFERENCE -1.1; LYMPHOCYTES % (AUTO) 24.4 % (13-45); MEAN CORPUSCULAR HEMOGLOBIN 29.6 pg (27.0-33.4); MEAN CORPUSCULAR HGB CONC 32.3 g/dL (32.0-36.0); MEAN CORPUSCULAR VOLUME 91 fl (80-97); MONOCYTES % (AUTO) 9.9 % (3-13); RED BLOOD COUNT 3.74 10^6/uL (3.72-5.28); RED CELL DISTRIBUTION WIDTH 13.6 % (11.5-14.0); SEGMENTED NEUTROPHILS % (AUTO) 61.7 % (42-78); WHITE BLOOD COUNT 7.4 10^3/uL (4.0-10.5)
[2016-10-13 05:13] LABS: ANION GAP 11 (5-19); BLOOD UREA NITROGEN 27 mg/dL (7-20); CALCIUM 9.2 mg/dL (8.4-10.2); CARBON DIOXIDE 23 mmol/L (22-30); CHLORIDE 107 mmol/L (98-107); CREATININE RESULT 1.17 mg/dL (0.52-1.25); GLUCOSE 112 mg/dL (75-110); POTASSIUM 4.1 mmol/L (3.6-5.0); SODIUM 140.5 mmol/L (137-145)
[2016-10-13] MEDS: LANSOPRAZOLE 30 MG TAB.RAP.DR PO SCH (05:53)
[2016-10-13] MEDS: LEVOTHYROXINE SODIUM 0.05 MG TABLET PO SCH (05:53)
[2016-10-13] MEDS ORDERED: METRONIDAZOLE 500 MG/NS RTU 100 ML IV ONE (07:00)
[2016-10-13] MEDS: ACETAMINOPHEN 325 MG TABLET PO PRN (08:35)
[2016-10-13] MEDS: RIVASTIGMINE TARTRATE 1.5 MG CAPSULE PO SCH ×2 (08:35→21:49)
[2016-10-13] MEDS: METOPROLOL TARTRATE 50 MG TABLET PO SCH ×2 (08:36→21:50)
[2016-10-13] MEDS: HYDROCHLOROTHIAZIDE 25 MG TABLET PO SCH (08:36)
[2016-10-13] MEDS: APIXABAN 5 MG TABLET PO SCH ×2 (08:37→21:50)
[2016-10-13] MEDS: CHOLECALCIFEROL (D3) 1,000 UNIT TABLET PO SCH (08:37)
[2016-10-13] MEDS: POTASSIUM CHLORIDE 20 MEQ/15 ML UDCUP PO SCH (08:39)
--- NOTE | 2016-10-13 14:35 | PDOC PROGRESS REPORT ---
Subjective Progress Note for:: 10/13/16 Subjective:: She was seen by the bedside the stool study came back positive for C. difficile toxin Physical Exam Vital Signs: Temp Pulse Resp BP Pulse Ox 97.5 F 94 24 H 127/73 H 100 10/13/16 11:38 10/13/16 11:38 10/13/16 11:38 10/13/16 11:38 10/13/16 11:38 Intake & Output 10/12/16 10/13/16 10/14/16 06:59 06:59 06:59 Intake Total 736 1550 473 Output Total 800 1500 300 Balance -64 50 173 Weight 123.1 kg 123.1 kg General appearance: PRESENT: no acute distress, obese Eye exam: PRESENT: PERRLA Respiratory exam: PRESENT: clear to auscultation milana Cardiovascular exam: PRESENT: +S1, +S2 GI/Abdominal exam: PRESENT: soft Neurological exam: PRESENT: alert Results Laboratory Results: 10/13/16 04:11 10/13/16 04:11 10/12/16 10/13/16 10/13/16 19:55 04:11 04:11 WBC 7.4 RBC 3.74 Hgb 11.0 L Hct 34.1 L MCV 91 MCH 29.6 MCHC 32.3 RDW 13.6 Plt Count 237 Seg Neutrophils % 61.7 Lymphocytes % 24.4 Monocytes % 9.9 Eosinophils % 3.6 Basophils % 0.4 Absolute Neutrophils 4.6 Absolute Lymphocytes 1.8 Absolute Monocytes 0.7 Absolute Eosinophils 0.3 Absolute Basophils 0.0 Carbonic Acid 1.15 HCO3/H2CO3 Ratio 21:1 ABG pH 7.43 ABG pCO2 38.1 ABG pO2 84.3 ABG HCO3 24.7 ABG O2 Saturation 96.6 ABG Base Excess 0.5 FiO2 ROOM AIR Sodium 140.5 Potassium 4.1 Chloride 107 Carbon Dioxide 23 Anion Gap 11 BUN 27 H Creatinine 1.17 Est GFR ( Amer) 55 L Est GFR (Non-Af Amer) 46 L Glucose 112 H Calcium 9.2 10/11/16 10/12/16 10/12/16 16:30 04:46 04:46 Creatine Kinase 47 CK-MB (CK-2) 0.50 Troponin I < 0.012 < 0.012 Impressions: Chest X-Ray 10/12/16 00:00 IMPRESSION: NO ACUTE RADIOGRAPHIC FINDING IN THE CHEST. Assessment & Plan - Diagnosis (1) Atrial fibrillation with RVR Is this a current diagnosis for this admission?: Yes (2) History of hypertension Is this a current diagnosis for this admission?: Yes (3) History of stroke Is this a current diagnosis for this admission?: Yes (4) Hypothyroidism Qualifiers: Hypothyroidism type: unspecified Qualified Code(s): E03.9 - Hypothyroidism, unspecified Is this a current diagnosis for this admission?: Yes (5) Peripheral edema Is this a current diagnosis for this admission?: Yes (6) Schizophrenia, paranoid type Is this a current diagnosis for this admission?: Yes (7) Clostridium difficile diarrhea Is this a current diagnosis for this admission?: YesPlan: Start Flagyl 500 p.o. 3 times a day
[2016-10-13] MEDS: METRONIDAZOLE 500 MG/NS RTU 100 ML IV SCH ×2 (14:48→21:49)
[2016-10-13] MEDS ORDERED: DILTIAZEM HCL 240 MG CAPSULE.CR PO ONE (15:00)
[2016-10-13] MEDS: QUETIAPINE FUMARATE 25 MG TABLET PO SCH (21:50)
[2016-10-13] MEDS ORDERED: LACTOBACILLUS ACIDOPHILUS 250 MG TAB PO ONE (22:00)
[2016-10-14] MEDS: LANSOPRAZOLE 30 MG TAB.RAP.DR PO SCH (05:22)
[2016-10-14] MEDS: METRONIDAZOLE 500 MG/NS RTU 100 ML IV SCH ×3 (05:23→22:40)
[2016-10-14] MEDS: LEVOTHYROXINE SODIUM 0.05 MG TABLET PO SCH (05:24)
--- NOTE | 2016-10-14 09:54 | EKG REPORT ---
SEVERITY:- ABNORMAL ECG - ATRIAL FIBRILLATION, V-RATE 83-160 NONSPECIFIC T ABNORMALITIES, LATERAL LEADS : Confirmed by: Tod Arriola 14-Oct-2016 09:53:28
[2016-10-14] MEDS: DILTIAZEM HCL 240 MG CAPSULE.CR PO SCH (10:57)
[2016-10-14] MEDS: HYDROCHLOROTHIAZIDE 25 MG TABLET PO SCH (10:57)
[2016-10-14] MEDS: METOPROLOL TARTRATE 50 MG TABLET PO SCH ×2 (10:57→22:34)
[2016-10-14] MEDS: APIXABAN 5 MG TABLET PO SCH ×2 (10:57→22:35)
[2016-10-14] MEDS: RIVASTIGMINE TARTRATE 1.5 MG CAPSULE PO SCH ×2 (10:57→22:33)
[2016-10-14] MEDS: POTASSIUM CHLORIDE 20 MEQ/15 ML UDCUP PO SCH (10:57)
[2016-10-14] MEDS: CHOLECALCIFEROL (D3) 1,000 UNIT TABLET PO SCH (10:57)
[2016-10-14] MEDS: LACTOBACILLUS ACIDOPHILUS 250 MG TAB PO SCH ×2 (10:57→17:40)
--- NOTE | 2016-10-14 20:07 | PDOC PROGRESS REPORT ---
Subjective Progress Note for:: 10/14/16 Subjective:: Patient denied nay chest pain, SOB, or palpitation. She is off IV Cardizem drip. No nausea, vomiting, or abdominal pain. No diarrhea. Indwelling Calvo catheter in use. Physical Exam Vital Signs: Temp Pulse Resp BP Pulse Ox 98.1 F 80 19 104/60 97 10/14/16 15:18 10/14/16 15:18 10/14/16 15:18 10/14/16 15:18 10/14/16 15:18 Intake & Output 10/13/16 10/14/16 10/15/16 06:59 06:59 06:59 Intake Total 1550 2081 227 Output Total 1500 4480 200 Balance 50 -2399 27 Weight 123.1 kg 118.8 kg General appearance: PRESENT: no acute distress, morbidly obese Head exam: PRESENT: atraumatic, normocephalic Mouth exam: PRESENT: moist Respiratory exam: PRESENT: clear to auscultation milana Cardiovascular exam: PRESENT: irregular rhythm GI/Abdominal exam: PRESENT: normal bowel sounds, soft. ABSENT: distended, guarding, mass, organolmegaly, rebound, tenderness Extremities exam: PRESENT: pedal edema - comparatively better Musculoskeletal exam: PRESENT: deformity - related to joint involvement with arthritis Neurological exam: PRESENT: alert, awake, oriented to person, oriented to place , oriented to time, oriented to situation, CN II-XII grossly intact. ABSENT: motor sensory deficit Skin exam: PRESENT: dry, intact, warm. ABSENT: cyanosis, rash Results Laboratory Results: 10/13/16 04:11 10/13/16 04:11 10/11/16 10/12/16 10/12/16 16:30 04:46 04:46 Creatine Kinase 47 CK-MB (CK-2) 0.50 Troponin I < 0.012 < 0.012 Impressions: Chest X-Ray 10/12/16 00:00 IMPRESSION: NO ACUTE RADIOGRAPHIC FINDING IN THE CHEST. Assessment & Plan - Diagnosis (1) Atrial fibrillation with RVR Is this a current diagnosis for this admission?: YesPlan: See attending physician orders. maintain on Metoprolol for rate control and Eliquis for anticoagulation management (2) HTN (hypertension) Qualifiers: Hypertension type: essential hypertension Qualified Code(s): I10 - Essential (primary) hypertension Is this a current diagnosis for this admission?: YesPlan: See attending physician orders. (3) Hypothyroidism Qualifiers: Hypothyroidism type: unspecified Qualified Code(s): E03.9 - Hypothyroidism, unspecified Is this a current diagnosis for this admission?: YesPlan: See attending physician orders. (4) GERD (gastroesophageal reflux disease) Qualifiers: Esophagitis presence: without esophagitis Qualified Code(s): K21.9 - Gastro-esophageal reflux disease without esophagitis Is this a current diagnosis for this admission?: YesPlan: See attending physician orders. (5) History of stroke Is this a current diagnosis for this admission?: YesPlan: See attending physician orders. (6) Depression Qualifiers: Depression Type: unspecified Qualified Code(s): F32.9 - Major depressive disorder, single episode, unspecified Is this a current diagnosis for this admission?: YesPlan: See attending physician orders. (7) H/O retinal vein occlusion Is this a current diagnosis for this admission?: YesPlan: See attending physician orders. (8) Schizophrenia, paranoid type Is this a current diagnosis for this admission?: YesPlan: See attending physician orders. - Time Time Spent with patient: 25-34 minutes Medications reviewed and adjusted accordingly: Yes Anticipated discharge: Home with Homehealth Within: Other - Inpatient Certification Medical Necessity: Need Close Monitoring Due to Risk of Patient Decompensation, Need For Continuous Telemetry Monitoring, Risk of Complication if Not Cared For in Hospital Post Hospital Care: D/C Chief Lifestyle Officer Documentation - Plan Summary Plan Summary: See attending physician orders.
[2016-10-14] MEDS: QUETIAPINE FUMARATE 25 MG TABLET PO SCH (22:34)
[2016-10-15] MEDS: LEVOTHYROXINE SODIUM 0.05 MG TABLET PO SCH (04:44)
[2016-10-15] MEDS: LANSOPRAZOLE 30 MG TAB.RAP.DR PO SCH (04:45)
[2016-10-15] MEDS: ACETAMINOPHEN 325 MG TABLET PO PRN ×2 (04:45→21:14)
[2016-10-15] MEDS: METRONIDAZOLE 500 MG/NS RTU 100 ML IV SCH ×2 (04:48→13:47)
--- NOTE | 2016-10-15 08:49 | PDOC PROGRESS REPORT ---
Subjective Progress Note for:: 10/15/16 Subjective:: Patient denied nay chest pain, SOB, or palpitation. She reported episode of diarrhea this morning. No nausea, vomiting, or abdominal pain. Indwelling Calvo catheter in use. Physical Exam Vital Signs: Temp Pulse Resp BP Pulse Ox 98.1 F 114 H 13 130/77 H 97 10/15/16 08:00 10/15/16 08:00 10/15/16 08:00 10/15/16 08:00 10/15/16 08:00 Intake & Output 10/14/16 10/15/16 10/16/16 06:59 06:59 06:59 Intake Total 2081 827 Output Total 4480 700 Balance -2399 127 Weight 118.8 kg Physical Exam: General appearance: PRESENT: no acute distress, morbidly obese Head exam: PRESENT: atraumatic, normocephalic Mouth exam: PRESENT: moist Respiratory exam: PRESENT: clear to auscultation milana Cardiovascular exam: PRESENT: irregular rhythm GI/Abdominal exam: PRESENT: normal bowel sounds, soft. ABSENT: distended, guarding, mass, organomegaly, rebound, tenderness Extremities exam: PRESENT: pedal edema - comparatively better Musculoskeletal exam: PRESENT: deformity - related to joint involvement with arthritis Neurological exam: PRESENT: alert, awake, oriented to person, oriented to place , oriented to time, oriented to situation, CN II-XII grossly intact. ABSENT: motor sensory deficit Skin exam: PRESENT: dry, intact, warm. ABSENT: cyanosis, rash Results Laboratory Results: 10/13/16 04:11 10/13/16 04:11 10/11/16 10/12/16 10/12/16 16:30 04:46 04:46 Creatine Kinase 47 CK-MB (CK-2) 0.50 Troponin I < 0.012 < 0.012 Impressions: Chest X-Ray 10/12/16 00:00 IMPRESSION: NO ACUTE RADIOGRAPHIC FINDING IN THE CHEST. Assessment & Plan - Diagnosis (1) Atrial fibrillation with RVR Is this a current diagnosis for this admission?: YesPlan: See attending physician orders. Continue with Cardizem, Metoprolol and Eliquis. (2) Clostridium difficile colitis Is this a current diagnosis for this admission?: NoPlan: Patient will continue on oral Metronidazole 500mg p.o tid management for her newly diagnosed C. difficile colitis. I will maintainher on IV fluid support with N/S at 75 ml/hour. (3) HTN (hypertension) Qualifiers: Hypertension type: essential hypertension Qualified Code(s): I10 - Essential (primary) hypertension Is this a current diagnosis for this admission?: YesPlan: See attending physician orders. (4) Hypothyroidism Qualifiers: Hypothyroidism type: unspecified Qualified Code(s): E03.9 - Hypothyroidism, unspecified Is this a current diagnosis for this admission?: YesPlan: See attending physician orders. (5) GERD (gastroesophageal reflux disease) Qualifiers: Esophagitis presence: without esophagitis Qualified Code(s): K21.9 - Gastro-esophageal reflux disease without esophagitis Is this a current diagnosis for this admission?: YesPlan: See attending physician orders. (6) History of stroke Is this a current diagnosis for this admission?: YesPlan: See attending physician orders. (7) Depression Qualifiers: Depression Type: unspecified Qualified Code(s): F32.9 - Major depressive disorder, single episode, unspecified Is this a current diagnosis for this admission?: YesPlan: See attending physician orders. (8) H/O retinal vein occlusion Is this a current diagnosis for this admission?: YesPlan: See attending physician orders. (9) Schizophrenia, paranoid type Is this a current diagnosis for this admission?: YesPlan: See attending physician orders. - Time Time Spent with patient: 25-34 minutes Medications reviewed and adjusted accordingly: Yes Anticipated discharge: Home with Homehealth Within: Other - Inpatient Certification Medical Necessity: Need Close Monitoring Due to Risk of Patient Decompensation, Need For IV Fluids, Need For Continuous Telemetry Monitoring, Risk of Complication if Not Cared For in Hospital Post Hospital Care: D/C or Transfer Summary - Plan Summary Plan Summary: See attending physician orders.
[2016-10-15] MEDS: METOPROLOL TARTRATE 50 MG TABLET PO SCH ×2 (10:51→21:14)
[2016-10-15] MEDS: LACTOBACILLUS ACIDOPHILUS 250 MG TAB PO SCH ×2 (10:51→21:06)
[2016-10-15] MEDS: DILTIAZEM HCL 240 MG CAPSULE.CR PO SCH (10:51)
[2016-10-15] MEDS: HYDROCHLOROTHIAZIDE 25 MG TABLET PO SCH (10:51)
[2016-10-15] MEDS: RIVASTIGMINE TARTRATE 1.5 MG CAPSULE PO SCH ×2 (10:51→21:14)
[2016-10-15] MEDS: POTASSIUM CHLORIDE 20 MEQ/15 ML UDCUP PO SCH (10:51)
[2016-10-15] MEDS: CHOLECALCIFEROL (D3) 1,000 UNIT TABLET PO SCH (10:51)
[2016-10-15] MEDS: APIXABAN 5 MG TABLET PO SCH ×2 (11:03→21:14)
[2016-10-15] MEDS ORDERED: DIGOXIN INJ 0.5 MG/2 ML AMPULE IV ONE (14:00)
[2016-10-15] MEDS: METRONIDAZOLE 500 MG TABLET PO SCH (21:14)
[2016-10-15] MEDS: QUETIAPINE FUMARATE 25 MG TABLET PO SCH (21:14)
[2016-10-16] MEDS: METRONIDAZOLE 500 MG TABLET PO SCH ×3 (05:55→21:36)
[2016-10-16] MEDS: LEVOTHYROXINE SODIUM 0.05 MG TABLET PO SCH (05:55)
[2016-10-16] MEDS: LANSOPRAZOLE 30 MG TAB.RAP.DR PO SCH (05:55)
[2016-10-16] MEDS: ACETAMINOPHEN 325 MG TABLET PO PRN ×2 (05:57→22:26)
[2016-10-16] MEDS: RIVASTIGMINE TARTRATE 1.5 MG CAPSULE PO SCH ×2 (09:50→21:36)
[2016-10-16] MEDS: LACTOBACILLUS ACIDOPHILUS 250 MG TAB PO SCH ×2 (09:50→19:01)
[2016-10-16] MEDS: METOPROLOL TARTRATE 50 MG TABLET PO SCH ×2 (09:50→21:36)
[2016-10-16] MEDS: POTASSIUM CHLORIDE 20 MEQ/15 ML UDCUP PO SCH (09:50)
[2016-10-16] MEDS: APIXABAN 5 MG TABLET PO SCH ×2 (09:50→21:36)
[2016-10-16] MEDS: DILTIAZEM HCL 240 MG CAPSULE.CR PO SCH (09:50)
[2016-10-16] MEDS: HYDROCHLOROTHIAZIDE 25 MG TABLET PO SCH (09:50)
[2016-10-16] MEDS: CHOLECALCIFEROL (D3) 1,000 UNIT TABLET PO SCH (09:50)
--- NOTE | 2016-10-16 17:18 | PDOC PROGRESS REPORT ---
Subjective Progress Note for:: 10/16/16 Subjective:: Patient denied nay chest pain, SOB, or palpitation. She reported no episode of diarrhea so far today. No nausea, vomiting, or abdominal pain. Indwelling Calvo catheter in use. Physical Exam Vital Signs: Temp Pulse Resp BP Pulse Ox 98.2 F 75 20 122/76 99 10/16/16 16:00 10/16/16 16:00 10/16/16 16:00 10/16/16 16:00 10/16/16 16:00 Intake & Output 10/15/16 10/16/16 10/17/16 06:59 06:59 06:59 Intake Total 827 1537 Output Total 700 450 Balance 127 1087 Weight 120.3 kg Physical Exam: General appearance: PRESENT: no acute distress, morbidly obese Head exam: PRESENT: atraumatic, normocephalic Mouth exam: PRESENT: moist Respiratory exam: PRESENT: clear to auscultation milana Cardiovascular exam: PRESENT: irregular rhythm GI/Abdominal exam: PRESENT: normal bowel sounds, soft. ABSENT: distended, guarding, mass, organomegaly, rebound, tenderness Extremities exam: PRESENT: pedal edema - comparatively better Musculoskeletal exam: PRESENT: deformity - related to joint involvement with arthritis Neurological exam: PRESENT: alert, awake, oriented to person, oriented to place , oriented to time, oriented to situation, CN II-XII grossly intact. ABSENT: motor sensory deficit Skin exam: PRESENT: dry, intact, warm. ABSENT: cyanosis, rash Results Laboratory Results: 10/13/16 04:11 10/13/16 04:11 10/11/16 10/12/16 10/12/16 16:30 04:46 04:46 Creatine Kinase 47 CK-MB (CK-2) 0.50 Troponin I < 0.012 < 0.012 Impressions: Chest X-Ray 10/12/16 00:00 IMPRESSION: NO ACUTE RADIOGRAPHIC FINDING IN THE CHEST. Assessment & Plan - Diagnosis (1) Atrial fibrillation with RVR Is this a current diagnosis for this admission?: YesPlan: See attending physician orders. Continue on Cardizem and Metoprolol for rate control management and Eliquis for anticoagulation. (2) Clostridium difficile colitis Is this a current diagnosis for this admission?: NoPlan: Patient will continue on oral Metronidazole therapy for C. difficile colitis. Maintain on IV fluid support with N/S. (3) HTN (hypertension) Qualifiers: Hypertension type: essential hypertension Qualified Code(s): I10 - Essential (primary) hypertension Is this a current diagnosis for this admission?: YesPlan: See attending physician orders. (4) Hypothyroidism Qualifiers: Hypothyroidism type: unspecified Qualified Code(s): E03.9 - Hypothyroidism, unspecified Is this a current diagnosis for this admission?: YesPlan: See attending physician orders. (5) GERD (gastroesophageal reflux disease) Qualifiers: Esophagitis presence: without esophagitis Qualified Code(s): K21.9 - Gastro-esophageal reflux disease without esophagitis Is this a current diagnosis for this admission?: YesPlan: See attending physician orders. (6) History of stroke Is this a current diagnosis for this admission?: YesPlan: See attending physician orders. (7) Depression Qualifiers: Depression Type: unspecified Qualified Code(s): F32.9 - Major depressive disorder, single episode, unspecified Is this a current diagnosis for this admission?: YesPlan: See attending physician orders. (8) H/O retinal vein occlusion Is this a current diagnosis for this admission?: YesPlan: See attending physician orders. (9) Schizophrenia, paranoid type Is this a current diagnosis for this admission?: YesPlan: See attending physician orders. - Time Time Spent with patient: 25-34 minutes Medications reviewed and adjusted accordingly: Yes Anticipated discharge: Other - [facility] Within: Other - Inpatient Certification Based on my medical assessment, after consideration of the patient's comorbidities, presenting symptoms, or acuity I expect that the services needed warrant INPATIENT care.: Yes I certify that my determination is in accordance with my understanding of Medicare's requirements for reasonable and necessary INPATIENT services [42 CFR 412.3e].: Yes Medical Necessity: Need Close Monitoring Due to Risk of Patient Decompensation, Need For Continuous Telemetry Monitoring, Risk of Complication if Not Cared For in Hospital Post Hospital Care: D/C or Transfer Summary - Plan Summary Plan Summary: Continue current medication management. Follow up with logistics planner regarding [facility] placement. I will obtain physial therapy evaluation and improvement for mobilization.
[2016-10-16] MEDS: QUETIAPINE FUMARATE 25 MG TABLET PO SCH (21:36)
[2016-10-17] MEDS: LEVOTHYROXINE SODIUM 0.05 MG TABLET PO SCH (05:38)
[2016-10-17] MEDS: METRONIDAZOLE 500 MG TABLET PO SCH ×3 (05:38→22:24)
[2016-10-17] MEDS: LANSOPRAZOLE 30 MG TAB.RAP.DR PO SCH (05:38)
--- NOTE | 2016-10-17 07:55 | PDOC PROGRESS REPORT ---
Subjective Progress Note for:: 10/17/16 Subjective:: Patient denied nay chest pain, SOB, or palpitation. She reported no episode of diarrhea since last clinical evaluation. No nausea, vomiting, or abdominal pain. Physical Exam Vital Signs: Temp Pulse Resp BP Pulse Ox 98.0 F 63 16 123/69 97 10/17/16 03:23 10/17/16 03:23 10/17/16 03:23 10/17/16 03:23 10/17/16 03:23 Intake & Output 10/16/16 10/17/16 10/18/16 06:59 06:59 06:59 Intake Total 1537 1566 Output Total 450 Balance 1087 1566 Weight 120.3 kg 120 kg Physical Exam: General appearance: PRESENT: no acute distress, morbidly obese Head exam: PRESENT: atraumatic, normocephalic Mouth exam: PRESENT: moist Respiratory exam: PRESENT: clear to auscultation milana Cardiovascular exam: PRESENT: irregular rhythm GI/Abdominal exam: PRESENT: normal bowel sounds, soft. ABSENT: distended, guarding, mass, organomegaly, rebound, tenderness Extremities exam: PRESENT: pedal edema - comparatively better Musculoskeletal exam: PRESENT: deformity - related to joint involvement with arthritis Neurological exam: PRESENT: alert, awake, oriented to person, oriented to place , oriented to time, oriented to situation, CN II-XII grossly intact. ABSENT: motor sensory deficit Skin exam: PRESENT: dry, intact, warm. ABSENT: cyanosis, rash Results Laboratory Results: 10/13/16 04:11 10/13/16 04:11 10/11/16 10/12/16 10/12/16 16:30 04:46 04:46 Creatine Kinase 47 CK-MB (CK-2) 0.50 Troponin I < 0.012 < 0.012 Impressions: Chest X-Ray 10/12/16 00:00 IMPRESSION: NO ACUTE RADIOGRAPHIC FINDING IN THE CHEST. Assessment & Plan - Diagnosis (1) Atrial fibrillation with RVR Is this a current diagnosis for this admission?: YesPlan: See attending physician orders. Continue on Cardizem and Metoprolol for rate control management and Eliquis for anticoagulation. (2) Clostridium difficile colitis Is this a current diagnosis for this admission?: NoPlan: Patient will continue on oral Metronidazole therapy for C. difficile colitis. Maintain on IV fluid support with N/S. (3) HTN (hypertension) Qualifiers: Hypertension type: essential hypertension Qualified Code(s): I10 - Essential (primary) hypertension Is this a current diagnosis for this admission?: YesPlan: See attending physician orders. (4) Hypothyroidism Qualifiers: Hypothyroidism type: unspecified Qualified Code(s): E03.9 - Hypothyroidism, unspecified Is this a current diagnosis for this admission?: YesPlan: See attending physician orders. (5) GERD (gastroesophageal reflux disease) Qualifiers: Esophagitis presence: without esophagitis Qualified Code(s): K21.9 - Gastro-esophageal reflux disease without esophagitis Is this a current diagnosis for this admission?: YesPlan: See attending physician orders. (6) History of stroke Is this a current diagnosis for this admission?: YesPlan: See attending physician orders. (7) Depression Qualifiers: Depression Type: unspecified Qualified Code(s): F32.9 - Major depressive disorder, single episode, unspecified Is this a current diagnosis for this admission?: YesPlan: See attending physician orders. (8) H/O retinal vein occlusion Is this a current diagnosis for this admission?: YesPlan: See attending physician orders. (9) Schizophrenia, paranoid type Is this a current diagnosis for this admission?: YesPlan: See attending physician orders. - Time Time Spent with patient: 25-34 minutes Medications reviewed and adjusted accordingly: Yes Anticipated discharge: Other - [facility] placement, awaiting acceptance, Medicaid assistance and bed allocation - Inpatient Certification Medical Necessity: Need Close Monitoring Due to Risk of Patient Decompensation, Risk of Complication if Not Cared For in Hospital Post Hospital Care: D/C or Transfer Summary - Plan Summary Plan Summary: See attending physician orders.
[2016-10-17] MEDS: POTASSIUM CHLORIDE 20 MEQ/15 ML UDCUP PO SCH (09:44)
[2016-10-17] MEDS: LACTOBACILLUS ACIDOPHILUS 250 MG TAB PO SCH ×2 (09:52→18:53)
[2016-10-17] MEDS: CHOLECALCIFEROL (D3) 1,000 UNIT TABLET PO SCH (09:53)
[2016-10-17] MEDS: APIXABAN 5 MG TABLET PO SCH ×2 (09:53→22:24)
[2016-10-17] MEDS: RIVASTIGMINE TARTRATE 1.5 MG CAPSULE PO SCH ×2 (09:53→22:24)
[2016-10-17] MEDS: DILTIAZEM HCL 240 MG CAPSULE.CR PO SCH (09:54)
[2016-10-17] MEDS: HYDROCHLOROTHIAZIDE 25 MG TABLET PO SCH (09:55)
[2016-10-17] MEDS: METOPROLOL TARTRATE 50 MG TABLET PO SCH ×2 (09:55→22:24)
[2016-10-17] MEDS: QUETIAPINE FUMARATE 25 MG TABLET PO SCH (22:24)
[2016-10-17] MEDS: ACETAMINOPHEN 325 MG TABLET PO PRN (23:00)
[2016-10-18] MEDS: METRONIDAZOLE 500 MG TABLET PO SCH ×2 (06:01→14:12)
[2016-10-18] MEDS: LANSOPRAZOLE 30 MG TAB.RAP.DR PO SCH (06:01)
[2016-10-18] MEDS: LEVOTHYROXINE SODIUM 0.05 MG TABLET PO SCH (06:01)
[2016-10-18] MEDS: LACTOBACILLUS ACIDOPHILUS 250 MG TAB PO SCH (09:20)
[2016-10-18] MEDS: DILTIAZEM HCL 240 MG CAPSULE.CR PO SCH (09:21)
[2016-10-18] MEDS: HYDROCHLOROTHIAZIDE 25 MG TABLET PO SCH (09:21)
[2016-10-18] MEDS: METOPROLOL TARTRATE 50 MG TABLET PO SCH (09:21)
[2016-10-18] MEDS: CHOLECALCIFEROL (D3) 1,000 UNIT TABLET PO SCH (09:21)
[2016-10-18] MEDS: POTASSIUM CHLORIDE 20 MEQ/15 ML UDCUP PO SCH (09:22)
[2016-10-18] MEDS: APIXABAN 5 MG TABLET PO SCH (09:28)
[2016-10-18] MEDS: RIVASTIGMINE TARTRATE 1.5 MG CAPSULE PO SCH (09:29)
[2016-10-18 10:53] LABS: ABSOLUTE EOSINOPHILS # (AUTO) 0.3 10^3/uL (0.0-0.6); ABSOLUTE LYMPHOCYTES (AUTO) 1.4 10^3/uL (0.5-4.7); ABSOLUTE MONOCYTES (AUTO) 0.8 10^3/uL (0.1-1.4); ABSOLUTE NEUT (AUTO) 4.3 10^3/uL (1.7-8.2); BASOPHILS % (AUTO) 0.4 % (0-2); EOSINOPHILS % (AUTO) 4.9 % (0-6); HEMATOCRIT 35.7 % (36.0-47.0); HEMOGLOBIN 11.5 g/dL (12.0-15.5); HGB HCT DIFFERENCE -1.2; LYMPHOCYTES % (AUTO) 20.5 % (13-45); MEAN CORPUSCULAR HEMOGLOBIN 29.4 pg (27.0-33.4); MEAN CORPUSCULAR HGB CONC 32.3 g/dL (32.0-36.0); MEAN CORPUSCULAR VOLUME 91 fl (80-97); MONOCYTES % (AUTO) 11.5 % (3-13); RED BLOOD COUNT 3.92 10^6/uL (3.72-5.28); RED CELL DISTRIBUTION WIDTH 13.3 % (11.5-14.0); SEGMENTED NEUTROPHILS % (AUTO) 62.7 % (42-78); WHITE BLOOD COUNT 6.8 10^3/uL (4.0-10.5)
[2016-10-18 11:16] LABS: ANION GAP 13 (5-19); BLOOD UREA NITROGEN 43 mg/dL (7-20); CALCIUM 9.4 mg/dL (8.4-10.2); CARBON DIOXIDE 21 mmol/L (22-30); CHLORIDE 105 mmol/L (98-107); CREATININE RESULT 1.21 mg/dL (0.52-1.25); GLUCOSE 140 mg/dL (75-110)
[2016-10-18 12:39] VITALS: BP 116/71
--- NOTE | 2016-10-18 14:41 | PDOC DISCHARGE SUMMARY ---
General - Admit/Disc Date/PCP Admission Date/Primary Care Provider: 10/11/16 14:05 GANGA HINA Discharge Date: 10/18/16 - Discharge Diagnosis (1) Atrial fibrillation with RVR Is this a current diagnosis for this admission?: Yes (2) Clostridium difficile colitis Is this a current diagnosis for this admission?: No (3) HTN (hypertension) Is this a current diagnosis for this admission?: Yes (4) Hypothyroidism Is this a current diagnosis for this admission?: Yes (5) GERD (gastroesophageal reflux disease) Is this a current diagnosis for this admission?: Yes (6) History of stroke Is this a current diagnosis for this admission?: Yes (7) Depression Is this a current diagnosis for this admission?: Yes (8) H/O retinal vein occlusion Is this a current diagnosis for this admission?: Yes (9) Schizophrenia, paranoid type Is this a current diagnosis for this admission?: Yes - Additional Information Resuscitation Status: Full Code Discharge Diet: Cardiac Discharge Activity: Activity As Tolerated Home Medications: Apixaban [Eliquis 5 mg Tablet] 5 mg PO Q12 10/11/16 Cholecalciferol (Vitamin D3) [Vitamin D3 1000 Unit Tablet] 1,000 unit PO DAILY 10/11/16 Dexlansoprazole [Dexilant 30 mg Capsule] 30 mg PO QHS 10/11/16 Levothyroxine Sodium [Synthroid 0.05 mg Tablet] 50 mcg PO DAILY@0630 10/11/16 Losartan/Hydrochlorothiazide [Hyzaar 100-25 Tablet] 1 tab PO DAILY 10/11/16 Metoprolol Tartrate [Lopressor 50 mg Tablet] 50 mg PO Q12 10/11/16 Mirabegron [Myrbetriq] 25 mg PO DAILY 10/11/16 Potassium Chloride [Klor-Con 8] 16 meq PO DAILY 10/11/16 Quetiapine Fumarate [Seroquel] 50 mg PO BIDP PRN 10/11/16 Quetiapine Fumarate [Seroquel] 50 mg PO QHS 10/11/16 Rivastigmine Tartrate [Rivastigmine] 6 mg PO Q12 10/11/16 Diltiazem HCl [Cardizem Cd 240 mg Capsule.cr] 240 mg PO DAILY #30 capsule.cr Metronidazole [Flagyl 500 mg Tablet] 500 mg PO Q8 #21 tablet 10/18/16 History of Present Illness History of Present Illness: ARPIT NAYLOR is a 71 year old female known to my practice whyobani presented to the ED with complain of shortness of brerath with irregular heart beats. She was recently discharged from [facility] following admission for acute psychosis with diagnosis of schizophrenia. During her hospital stay she had episode of atrial fibrillation and after cardiology consultation started on Metoprolol and Eliquis for rate control and anticoagulation management. Patient reported associated chest pain, shortness of breath and wheezing with her irregular freire beat. She was diagnosed woith hypothyroidism and started on low dose Levothyroxine during same admission to [facility]. She denied any chest pain, nausea , vomiting or abdominal pain. No headache or dizziness. Her initial assessment in the ED was remarkable for Atrial Fibrillation with RVR patten. Her medical morbidities include Hypertension,newly diagnosed a5tial fibrillation, hypothyroidism, schizophrenia and Osteoarthritis. Hospital Course Hospital Course: Patient was admitted for Atrial fibrillation with RVR. She did respond to IV Cardizem infusion and eventually changed to oral route administration. She remain on beta troy Metoprolol therapy along with Eliquis for rate and anticoagulation management. He hospital stay was further prolonged due to development of C.difficile colitis associated diarrhea. She was managed with Oral Metronidazole and will be discharged home with same for 7 more days. Attempt at placement in Assisted Living Facility in progress and son will follow up on efforts upon discharge to his care.The son hold patient's POA status. She will follow up in office as instructed upon discharge. Physical Exam Vital Signs: Temp Pulse Resp BP Pulse Ox 97.7 F 67 20 116/71 96 10/18/16 12:00 10/18/16 12:00 10/18/16 12:00 10/18/16 12:00 10/18/16 12:00 Intake & Output 10/17/16 10/18/16 10/19/16 06:59 06:59 06:59 Intake Total 1566 150 Balance 1566 150 Weight 120 kg Physical Exam: General appearance: PRESENT: no acute distress, morbidly obese Head exam: PRESENT: atraumatic, normocephalic Mouth exam: PRESENT: moist Respiratory exam: PRESENT: clear to auscultation milana Cardiovascular exam: PRESENT: irregular rhythm GI/Abdominal exam: PRESENT: normal bowel sounds, soft. ABSENT: distended, guarding, mass, organomegaly, rebound, tenderness Extremities exam: PRESENT: pedal edema - comparatively better Musculoskeletal exam: PRESENT: deformity - related to joint involvement with arthritis Neurological exam: PRESENT: alert, awake, oriented to person, oriented to place , oriented to time, oriented to situation, CN II-XII grossly intact. ABSENT: motor sensory deficit Skin exam: PRESENT: dry, intact, warm. ABSENT: cyanosis, rash Results Laboratory Results: 10/18/16 10:32 10/18/16 10:32 10/18/16 10/18/16 10:32 10:32 WBC 6.8 RBC 3.92 Hgb 11.5 L Hct 35.7 L MCV 91 MCH 29.4 MCHC 32.3 RDW 13.3 Plt Count 248 Seg Neutrophils % 62.7 Lymphocytes % 20.5 Monocytes % 11.5 Eosinophils % 4.9 Basophils % 0.4 Absolute Neutrophils 4.3 Absolute Lymphocytes 1.4 Absolute Monocytes 0.8 Absolute Eosinophils 0.3 Absolute Basophils 0.0 Sodium 139.0 Potassium 4.0 Chloride 105 Carbon Dioxide 21 L Anion Gap 13 BUN 43 H Creatinine 1.21 Est GFR ( Amer) 53 L Est GFR (Non-Af Amer) 44 L Glucose 140 H Calcium 9.4 10/11/16 10/12/16 10/12/16 16:30 04:46 04:46 Creatine Kinase 47 CK-MB (CK-2) 0.50 Troponin I < 0.012 < 0.012 Impressions: Chest X-Ray 10/12/16 00:00 IMPRESSION: NO ACUTE RADIOGRAPHIC FINDING IN THE CHEST. Qualifiers PATEINT BEING DISCHARGED WITH ANY OF THE FOLLOWING DIAGNOSIS?: No Plan Discharge Plan: Discharge home today. Follow up in office as instructed upon discharge. Time Spent: Less than 30 Minutes
== END 2016-10-18 17:00 | disposition home or self-care (01) | DRG 309 ==
LOC: ER 11:36 → EH 14:05 → UNDOADMIN 14:05 → EH 15:38 → 3N 15:38 → 4S 10-15 04:05
PROVIDERS: ADMIT Internal Medicine Geriatric Medicine; ATTEND Internal Medicine Geriatric Medicine
DX: I48.91 Unspecified atrial fibrillation (principal); A04.7 Enterocolitis due to Clostridium difficile; F20.0 Paranoid schizophrenia; I10 Essential (primary) hypertension; E03.9 Hypothyroidism, unspecified; K21.9 Gastro-esophageal reflux disease without esophagitis; F32.9 Major depressive disorder, single episode, unspecified; Z79.899 Other long term (current) drug therapy; Z90.49 Acquired absence of other specified parts of digestive tract; Z88.6 Allergy status to analgesic agent; Z88.8 Allergy status to other drugs, medicaments and biological substances; Z86.73 Personal history of transient ischemic attack (TIA), and cerebral infarction without residual deficits
CPT/HCPCS: 36415; 51701; 51702; 71010; 80048; 80053; 80307; 81001; 82550; 82553; 82565; 82803; 83690; 83735; 83880; 84439; 84443; 84484; 85025; 85027; 85610; 85730; 87493; 93005; 93010; 96365; 96366; 99285; G8978-GP; G8979-GP; G8980-GP; J1160; J3490

== ENCOUNTER 2017-03-24 13:21 | Observation (INO) | payer MEDICARE, MEDICAID ==
[2017-03-24] MEDS ORDERED: PEG 3350/NA SULF,BICARB,CL/KCL 4000 ML PO ONE (14:31)
[2017-03-24] MEDS ORDERED: ACETAMINOPHEN 325 MG TABLET PO PRN (14:42)
[2017-03-24] MEDS ORDERED: PROMETHAZINE HCL INJ 25 MG/1 ML VIAL IV PRN (14:43)
[2017-03-24] MEDS ORDERED: MAG HYDROX/AL HYDROX/SIMETH SUSP 30 ML UDCUP PO PRN (14:44)
[2017-03-24] MEDS ORDERED: LANSOPRAZOLE 30 MG TAB.RAP.DR PO ONE (15:30)
[2017-03-24 16:45] LABS: PROTHROMBIN TIME 13.2 SEC (11.4-15.4)
[2017-03-24 16:46] LABS: PARTIAL THROMBOPLASTIN TIME 28.8 SEC (23.5-35.8)
[2017-03-24 16:52] LABS: ABSOLUTE EOSINOPHILS # (AUTO) 0.2 10^3/uL (0.0-0.6); ABSOLUTE LYMPHOCYTES (AUTO) 1.7 10^3/uL (0.5-4.7); ABSOLUTE MONOCYTES (AUTO) 0.6 10^3/uL (0.1-1.4); ABSOLUTE NEUT (AUTO) 4.1 10^3/uL (1.7-8.2); BASOPHILS % (AUTO) 0.4 % (0-2); EOSINOPHILS % (AUTO) 3.4 % (0-6); HEMATOCRIT 32.8 % (36.0-47.0); HEMOGLOBIN 11.1 g/dL (12.0-15.5); HGB HCT DIFFERENCE 0.5; LYMPHOCYTES % (AUTO) 25.4 % (13-45); MEAN CORPUSCULAR HEMOGLOBIN 30.2 pg (27.0-33.4); MEAN CORPUSCULAR VOLUME 89 fl (80-97); MONOCYTES % (AUTO) 9.4 % (3-13); RED BLOOD COUNT 3.69 10^6/uL (3.72-5.28); RED CELL DISTRIBUTION WIDTH 13.5 % (11.5-14.0); SEGMENTED NEUTROPHILS % (AUTO) 61.4 % (42-78); WHITE BLOOD COUNT 6.6 10^3/uL (4.0-10.5)
[2017-03-24 17:05] LABS: ALANINE AMINOTRANSFERASE 24 U/L (9-52); ALBUMIN 4.1 g/dL (3.5-5.0); ALKALINE PHOSPHATASE 73 U/L (38-126); ANION GAP 13 (5-19); ASPARTATE AMINO TRANSFERASE 14 U/L (14-36); BILIRUBIN,DIRECT 0.3 mg/dL (0.0-0.4); BILIRUBIN,TOTAL 0.7 mg/dL (0.2-1.3); BLOOD UREA NITROGEN 42 mg/dL (7-20); CALCIUM 9.6 mg/dL (8.4-10.2); CARBON DIOXIDE 27 mmol/L (22-30); CHLORIDE 105 mmol/L (98-107); CREATININE RESULT 1.47 mg/dL (0.52-1.25); GLUCOSE 135 mg/dL (75-110); POTASSIUM 3.4 mmol/L (3.6-5.0); SODIUM 144.8 mmol/L (137-145); TOTAL PROTEIN 6.6 g/dL (6.3-8.2)
[2017-03-24] MEDS ORDERED: MAGNESIUM CITRATE 296 ML BOTTLE PO ONE (19:30)
[2017-03-24] MEDS ORDERED: BISACODYL 5 MG TABEC PO ONE ×2 (19:30→21:00)
[2017-03-24] MEDS: SIMETHICONE 80 MG TAB.CHEW PO SCH (19:58)
[2017-03-24] MEDS ORDERED: ONDANSETRON HCL INJ/PF 4 MG/2 ML SDV IV ONE (20:00)
[2017-03-25] MEDS ORDERED: DEXTROSE 5%-NORMAL SALINE 1,000 ML IV PRN (05:00)
[2017-03-25] MEDS ORDERED: LANSOPRAZOLE 30 MG TAB.RAP.DR PO SCH (06:00)
[2017-03-25] MEDS: SIMETHICONE 80 MG TAB.CHEW PO SCH (08:47)
[2017-03-25] MEDS ORDERED: BISACODYL 5 MG TABEC PO ONE (09:00)
[2017-03-25] MEDS ORDERED: MAGNESIUM CITRATE 296 ML BOTTLE PO ONE (10:00)
[2017-03-25] MEDS: MIDAZOLAM 2 MG/2 ML INJ ONE ×2 (16:15→16:26)
[2017-03-25] MEDS ORDERED: MIDAZOLAM 2 MG/2 ML INJ ONE (16:36)
[2017-03-25] MEDS ORDERED: NALOXONE HCL INJ/PF 0.4 MG/1 ML SDV ONE (16:36)
[2017-03-25] MEDS ORDERED: GLUCAGON,HUMAN RECOMB 1 MG INJ ONE (16:37)
[2017-03-25] MEDS ORDERED: FENTANYL CITRATE INJ/PF 100 MCG/2 ML AMPUL ONE ×2 (16:37)
[2017-03-25] MEDS ORDERED: EPINEPHRINE INJ 1 MG/10 ML DISP.SYRIN ONE (16:37)
[2017-03-25] MEDS ORDERED: FLUMAZENIL INJ 0.5 MG/5 ML VIAL ONE (16:37)
[2017-03-25] MEDS ORDERED: (PENDING PHARMACY ID) (Quetiapine Fumarate [Seroquel] 50 MG) PO PRN (17:14)
--- NOTE | 2017-03-25 17:14 | PDOC PROGRESS REPORT ---
Subjective Progress Note for:: 03/25/17 Subjective:: No chest pain or difficulty with breathing. No fever or chills. No abdominal pain, nausea or vomiting. Post colonoscopy with large sigmoid colonic mass. Physical Exam Vital Signs: Temp Pulse Resp BP Pulse Ox 97.1 F 139 H 14 128/85 H 96 03/25/17 14:45 03/25/17 17:00 03/25/17 17:00 03/25/17 17:00 03/25/17 17:00 Intake & Output 03/24/17 03/25/17 03/26/17 06:59 06:59 06:59 Intake Total 460 200 Balance 460 200 Weight 117.8 kg 117.8 kg General appearance: PRESENT: no acute distress, morbidly obese Head exam: PRESENT: atraumatic, normocephalic Eye exam: PRESENT: conjunctiva pink, EOMI, PERRLA. ABSENT: scleral icterus Mouth exam: PRESENT: moist Respiratory exam: PRESENT: clear to auscultation milana Cardiovascular exam: PRESENT: RRR. ABSENT: diastolic murmur, rubs, systolic murmur GI/Abdominal exam: PRESENT: normal bowel sounds, soft. ABSENT: distended, guarding, mass, organolmegaly, rebound, tenderness Musculoskeletal exam: PRESENT: deformity - related to multiple jpoint involvement with arthritis, normal inspection Neurological exam: PRESENT: alert, awake, oriented to person, oriented to place , oriented to time, oriented to situation, CN II-XII grossly intact. ABSENT: motor sensory deficit Psychiatric exam: PRESENT: appropriate affect, normal mood. ABSENT: homicidal ideation, suicidal ideation Skin exam: PRESENT: dry, intact, warm. ABSENT: cyanosis, rash Results Laboratory Results: 03/24/17 16:15 03/24/17 16:15 03/24/17 16:15 Sodium 144.8 Potassium 3.4 L Chloride 105 Carbon Dioxide 27 Anion Gap 13 BUN 42 H Creatinine 1.47 H Est GFR ( Amer) 42 L Est GFR (Non-Af Amer) 35 L Glucose 135 H Calcium 9.6 Total Bilirubin 0.7 AST 14 ALT 24 Alkaline Phosphatase 73 Total Protein 6.6 Albumin 4.1 Assessment & Plan - Diagnosis (1) Symptomatic anemia Is this a current diagnosis for this admission?: Yes (2) Blood in stool Is this a current diagnosis for this admission?: Yes (3) Chronic atrial fibrillation Is this a current diagnosis for this admission?: Yes (4) Depression Qualifiers: Depression Type: major depressive disorder Major depression recurrence: recurrent Psychotic features: with psychotic features Is this a current diagnosis for this admission?: Yes (5) GERD (gastroesophageal reflux disease) Qualifiers: Esophagitis presence: without esophagitis Qualified Code(s): K21.9 - Gastro -esophageal reflux disease without esophagitis Is this a current diagnosis for this admission?: Yes (6) HTN (hypertension) Qualifiers: Hypertension type: essential hypertension Qualified Code(s): I10 - Essential (primary) hypertension Is this a current diagnosis for this admission?: Yes (7) Hypothyroidism Qualifiers: Hypothyroidism type: unspecified Qualified Code(s): E03.9 - Hypothyroidism , unspecified Is this a current diagnosis for this admission?: Yes (8) Schizophrenia, paranoid type Is this a current diagnosis for this admission?: Yes (9) Colonic mass Is this a current diagnosis for this admission?: Yes Plan: We will arrange for surgical and oncology consultation on outpatient bases. - Time Time Spent with patient: 25-34 minutes Medications reviewed and adjusted accordingly: Yes Anticipated discharge: Home Within: within 24 hours - Plan Summary Plan Summary: See attending physician orders.
[2017-03-25] MEDS ORDERED: METOPROLOL SUCCINATE 50 MG TAB.SR.24H PO SCH ×2 (17:15→22:00)
[2017-03-25] MEDS ORDERED: QUETIAPINE FUMARATE 25 MG TABLET PO PRN (17:27)
[2017-03-25] MEDS ORDERED: METOPROLOL TARTRATE PF/INJ 5 MG/5 ML SDV IV ONE ×3 (18:30→22:45)
[2017-03-25] MEDS ORDERED: LEVOTHYROXINE SODIUM 0.05 MG TABLET PO ONE (19:00)
[2017-03-25] MEDS ORDERED: (PENDING PHARMACY ID) (Rivastigmine Tartrate [Rivastigmine] 6 MG) PO SCH (22:00)
[2017-03-25] MEDS ORDERED: (PENDING PHARMACY ID) (Quetiapine Fumarate [Seroquel] 50 MG) PO SCH (22:00)
[2017-03-25] MEDS ORDERED: (PENDING PHARMACY ID) (Diltiazem Hcl [Cartia Xt] 240 MG) PO SCH ×2 (22:00)
[2017-03-25] MEDS ORDERED: QUETIAPINE FUMARATE 25 MG TABLET PO SCH (22:00)
[2017-03-25] MEDS ORDERED: DILTIAZEM HCL 240 MG CAPSULE.CR PO SCH (22:00)
[2017-03-26] MEDS ORDERED: LANSOPRAZOLE 30 MG TAB.RAP.DR PO SCH (06:00)
[2017-03-26] MEDS ORDERED: LEVOTHYROXINE SODIUM 0.05 MG TABLET PO SCH (06:00)
--- NOTE | 2017-03-26 08:43 | PDOC DISCHARGE SUMMARY ---
General - Admit/Disc Date/PCP Admission Date/Primary Care Provider: 03/24/17 13:21 GANGA HINA Discharge Date: 03/26/17 - Discharge Diagnosis (1) Colonic mass Is this a current diagnosis for this admission?: Yes Summary: see attending physician orders. (2) Symptomatic anemia Is this a current diagnosis for this admission?: Yes (3) Blood in stool Is this a current diagnosis for this admission?: Yes (4) Chronic atrial fibrillation Is this a current diagnosis for this admission?: Yes (5) Depression Is this a current diagnosis for this admission?: Yes (6) GERD (gastroesophageal reflux disease) Is this a current diagnosis for this admission?: Yes (7) HTN (hypertension) Is this a current diagnosis for this admission?: Yes (8) Hypothyroidism Is this a current diagnosis for this admission?: Yes (9) Schizophrenia, paranoid type Is this a current diagnosis for this admission?: Yes - Additional Information Resuscitation Status: Full Code Discharge Diet: Cardiac Discharge Activity: Activity As Tolerated Home Medications: Apixaban [Eliquis 2.5 mg Tablet] 2.5 mg PO Q12 03/24/17 Cholecalciferol (Vitamin D3) [Vitamin D3 1000 Unit Tablet] 1,000 units PO DAILY 03/24/17 Dexlansoprazole [Dexilant 30 mg Capsule] 30 mg PO QHS 03/24/17 Diltiazem HCl [Cartia Xt] 240 mg PO QHS 03/24/17 Furosemide [Lasix 40 mg Tablet] 40 mg PO DAILY 03/24/17 Levothyroxine Sodium [Synthroid 0.05 mg Tablet] 0.05 mg PO Q6AM 03/24/17 Losartan/Hydrochlorothiazide [Losartan-Hctz 100-25 mg Tab] 1 tab PO DAILY Metoprolol Succinate [Toprol Xl 50 mg Tab.sr] 50 mg PO Q12 03/24/17 Mirabegron [Myrbetriq] 25 mg PO DAILY 03/24/17 Potassium Chloride [K-Tab ER] 16 meq PO DAILY 03/24/17 Quetiapine Fumarate [Seroquel] 50 mg PO BIDP PRN 03/24/17 Quetiapine Fumarate [Seroquel] 50 mg PO QHS 03/24/17 Rivastigmine Tartrate [Rivastigmine] 6 mg PO Q12 03/24/17 History of Present Illness History of Present Illness: ARPIT NAYLOR is a 72 year old female known to my practice who presented with episodes of blood in her stool, associated intermittent dizziness and a recent cologuard evaluation that was positive. Patient denied any chest pain or significant shortness of breath. Due to her age and mobility limitation she was advised observational admission status in order to complete further evaluation with colonoscopy. he denied any nausea, vomiting or abdominal pain. she did admit to chills and feeling cold with cold intolerance. She has history of hypothyroidism. Her other morbidities include Hypertension, GERD, Recurrent Major Depression, Paranoid schizophrenia, osteoarthritis (involving several joints), and varicose veins in lower extremities. Hospital Course Hospital Course: In view of her age and cologuard findings, she was since in consultation by Dr Polanco and completed colonoscopy evaluation on 03/25/2017. Colonoscopy revealed a near obstructing sigmoid colon mass. Awaiting biopsy report. Arrangement in progress for surgical and oncology referral. Follow up in the office as instructed upon discharge. Physical Exam Vital Signs: Temp Pulse Resp BP Pulse Ox 98.1 F 140 H 16 101/58 L 95 03/25/17 23:08 03/25/17 23:08 03/25/17 23:08 03/25/17 23:08 03/25/17 23:08 Intake & Output 03/25/17 03/26/17 03/27/17 06:59 06:59 06:59 Intake Total 460 680 Output Total 700 Balance 460 -20 Weight 117.8 kg 117.8 kg Physical Exam: General appearance: PRESENT: no acute distress, morbidly obese Head exam: PRESENT: atraumatic, normocephalic Eye exam: PRESENT: conjunctiva pink, EOMI, PERRLA. ABSENT: scleral icterus Mouth exam: PRESENT: moist Respiratory exam: PRESENT: clear to auscultation milana Cardiovascular exam: PRESENT: RRR. ABSENT: diastolic murmur, rubs, systolic murmur GI/Abdominal exam: PRESENT: normal bowel sounds, soft. ABSENT: distended, guarding, mass, organomegaly, rebound, tenderness Musculoskeletal exam: PRESENT: deformity - related to multiple jpoint involvement with arthritis, normal inspection Neurological exam: PRESENT: alert, awake, oriented to person, oriented to place , oriented to time, oriented to situation, CN II-XII grossly intact. ABSENT: motor sensory deficit Psychiatric exam: PRESENT: appropriate affect, normal mood. ABSENT: homicidal ideation, suicidal ideation Skin exam: PRESENT: dry, intact, warm. ABSENT: cyanosis, rash Results Laboratory Results: 03/24/17 16:15 03/24/17 16:15 Qualifiers PATEINT BEING DISCHARGED WITH ANY OF THE FOLLOWING DIAGNOSIS?: No Plan Discharge Plan: D/C home today with follow up care plan as instructed upon discharge. Time Spent: Less than 30 Minutes
[2017-03-26 09:42] VITALS: BP 133/70
[2017-03-26] MEDS ORDERED: HYDROCHLOROTHIAZIDE 25 MG TABLET PO SCH (10:00)
[2017-03-26] MEDS ORDERED: (PENDING PHARMACY ID) (Mirabegron [Myrbetriq] 25 MG) PO SCH (10:00)
[2017-03-26] MEDS ORDERED: POTASSIUM CHLORIDE 16 MEQ PO SCH (10:00)
[2017-03-26] MEDS ORDERED: LOSARTAN POTASSIUM 50 MG TABLET PO SCH (10:00)
[2017-03-26] MEDS ORDERED: (PENDING PHARMACY ID) (Losartan/Hydrochlorothiazide [Losartan-Hctz 100-25 Mg Tab] 1 TAB) PO SCH ×2 (10:00)
[2017-03-26] MEDS ORDERED: CHOLECALCIFEROL (D3) 1,000 UNIT TABLET PO SCH (10:00)
== END 2017-03-26 10:28 | disposition home or self-care (01) ==
LOC: 4S 13:21
PROVIDERS: ADMIT Internal Medicine Geriatric Medicine; ATTEND Internal Medicine Geriatric Medicine
PROC: 0DBN8ZX Excision of Sigmoid Colon, Via Natural or Artificial Opening Endoscopic, Diagnostic (ICD-10-PCS; principal; 2017-03-25 16:00)
DX: C18.7 Malignant neoplasm of sigmoid colon (principal); K64.8 Other hemorrhoids; D64.9 Anemia, unspecified; K92.1 Melena; I48.2 Chronic atrial fibrillation; F33.3 Major depressive disorder, recurrent, severe with psychotic symptoms; K21.9 Gastro-esophageal reflux disease without esophagitis; I10 Essential (primary) hypertension; E03.9 Hypothyroidism, unspecified; F20.0 Paranoid schizophrenia; M15.9 Polyosteoarthritis, unspecified; I83.93 Asymptomatic varicose veins of bilateral lower extremities; Z79.02 Long term (current) use of antithrombotics/antiplatelets; Z79.899 Other long term (current) drug therapy
CPT/HCPCS: 45380; 36415; 85025; 85610; 85730; 80053; 88305 ×2; G0378 ×3; J2250; A9270 ×11; J3490 ×4; J3010; J2405; J0171; J1610; J2310

== ENCOUNTER → 2017-10-09 | Outpatient (CLI) | payer MEDICARE, MEDICAID ==
--- NOTE | 2017-10-09 15:35 | RADIOLOGY REPORT (SQ) ---
EXAM DESCRIPTION: [employer] COMPLETED DATE/TIME: 10/09/2017 3:04 pm REASON FOR STUDY: CHRONIC KIDNEY DISEASE, STAGE 3 (MODERATE) N18.3 CHRONIC KIDNEY DISEASE, STAGE 3 (MODERATE) COMPARISON: None. TECHNIQUE: Dynamic and static grayscale images acquired of the kidneys and bladder and recorded on P ACS. Additional selected color Doppler and spectral images recorded. LIMITATIONS: Limited study due to the patient's body habitus. FINDINGS: RIGHT KIDNEY: 8.5 cm. Normal echogenicity. Possible cortical cyst measuring 2.7 cm. No solid or suspicious masses. No hydronephrosis. No calcifications. LEFT KIDNEY: 8.6 cm. Normal echogenicity. No solid or suspicious masses. No hydronephrosis. No calcifications. BLADDER: No masses. OTHER FINDINGS: No other significant finding. IMPRESSION: LIMITED STUDY. NO HYDRONEPHROSIS OR SIGNIFICANT FINDINGS. TECHNICAL DOCUMENTATION: JOB ID: [id number] [employer]- All Rights Reserved Reading location - IP/workstation name: [email or web address]
== END ==
LOC: RAD 14:13
PROVIDERS: ATTEND Internal Medicine Geriatric Medicine
DX: N18.3 Chronic kidney disease, stage 3 (moderate) (principal)
CPT/HCPCS: 76775

== ENCOUNTER → 2017-10-13 | Outpatient (CLI) | payer MEDICARE, MEDICAID ==
[2017-10-13 10:56] LABS: ANION GAP 12 (5-19); BLOOD UREA NITROGEN 30 mg/dL (7-20); CALCIUM 9.9 mg/dL (8.4-10.2); CARBON DIOXIDE 26 mmol/L (22-30); CHLORIDE 108 mmol/L (98-107); GLUCOSE 116 mg/dL (75-110); POTASSIUM 4.9 mmol/L (3.6-5.0); SODIUM 146.1 mmol/L (137-145)
[2017-10-13 12:55] LABS: APPEARANCE,URINE SLIGHTLY-CLOUDY; BILIRUBIN,URINE NEGATIVE (NEGATIVE); COLOR,URINE YELLOW; GLUCOSE, URINE NEGATIVE (NEGATIVE); KETONES,URINE NEGATIVE (NEGATIVE); LEUKOCYTE ESTERASE,URINE SMALL (NEGATIVE); NITRITE,URINE NEGATIVE (NEGATIVE); PROTEIN,URINE NEGATIVE (NEGATIVE); URINE SPECIFIC GRAVITY 1.024
== END ==
LOC: OD 09:16
PROVIDERS: ATTEND Internal Medicine Geriatric Medicine
DX: N18.3 Chronic kidney disease, stage 3 (moderate) (principal)
CPT/HCPCS: 36415; 80048; 81001; 82306